=== PATIENT | male | born 1960 | race African-American/Black ===

== ENCOUNTER 2017-04-28 18:56 | Inpatient (IN) | payer OTHER ==
[2017-04-28 19:14] VITALS: BMI 31.0
--- NOTE | 2017-04-28 22:03 | HP ---
COWS - Scale Resting Pulse: 2= [place] 101-120 Sweatin= Chills/Flushing Restless Observation: 1= Difficult to Sit Still Pupil Size: 1= Pupils >than Normal Bone or Joint Aches: 1= Mild Discomfort Runny Nose/ Eye Tearin= Nasal Congestion GI Upset > 30mins: 0= None Tremor Observation: 0= None Yawning Observation: 1= 1-2x During Session Anxiety or Irritability: 1=Feels Anxious/Irritable Goose Flesh Skin: 3=Piloe[place] COWS Score: 12 Admission ROS S - HPI Chief Complaint: withdrawal symptoms Allergies/Adverse Reactions: Allergies Allergy/AdvReac Type Severity Reaction Status Date / Time No Known Allergies Allergy Verified 04/28/17 20:03 History of Present Illness: 57 yo male with hx of heroin, alcohol and nicotine dependence is here seeking detox for the first time. PMHX: asthma. Denies suicidal / homicidal ideation or suicide attempts. Denies any psychiatric admissions or OD. Reports was in an out patient [facility] program reports stop attending about a year ago. Reports longest period of sobriety 7 years. Exam Limitations: No Limitations - Ebola screening Have you traveled outside of the country in the last 21 days: No Have you had contact with anyone from an Ebola affected area: No Have you been sick,other than usual withdrawal symptoms: No Do you have a fever: Yes - Review of Systems Constitutional: Chills, Changes in sleep EENT: reports: No Symptoms Reported Respiratory: reports: SOB with Exertion (asthma, currently uses inhaler QD) Cardiac: reports: No Symptoms Reported GI: reports: Poor Fluid Intake : reports: No Symptoms Reported Musculoskeletal: reports: Back Pain, Joint Pain, Other (muscle cramps) Integumentary: reports: No Symptoms Reported Neuro: reports: No Symptoms reported Endocrine: reports: Intolerance to Cold Hematology: reports: No Symptoms Reported Psychiatric: reports: Orientated x3, Depressed Other Systems: Reviewed and Negative Patient History - Patient Medical History Hx Anemia: No Hx Asthma: Yes Hx Chronic Obstructive Pulmonary Disease (COPD): No Hx Cancer: No Hx Cardiac Disorders: No Hx Congestive Heart Failure: No Hx Hypertension: No Hx Hypercholesterolemia: No Hx Pacemaker: No HX Cerebrovascular Accident: No Hx Seizures: No Hx Dementia: No Hx Diabetes: No Hx Gastrointestinal Disorders: No Hx Liver Disease: No Hx Genitourinary Disorders: No Hx Sexually Transmitted Disorders: No Hx Renal Disease (ESRD): No Hx Thyroid Disease: No Hx Human Immunodeficiency Virus (HIV): No (last tested 6 months ago ) Hx Hepatitis C: No Hx Depression: Yes Hx Suicide Attempt: No Hx Schizophrenia: No - Patient Surgical History Past Surgical History: No Hx Neurologic Surgery: No Hx Cataract Extraction: No Hx Cardiac Surgery: No Hx Lung Surgery: No Hx Breast Surgery: No Hx Breast Biopsy: No Hx Abdominal Surgery: Yes (Hernia repair 1990) Hx Appendectomy: No Hx Cholecystectomy: No Hx Genitourinary Surgery: No Hx Section: No Hx Orthopedic Surgery: No Anesthesia Reaction: No - PPD History Previous Implant?: Yes Documented Results: Negative w/o proof PPD to be Administered?: Yes - Reproductive History Patient is a Female of Child Bearing Age (11 -55 yrs old): No - Smoking Cessation Smoking history: Current every day smoker Have you smoked in the past 12 months: Yes Aproximately how many cigarettes per day: 10 Hx Chewing Tobacco Use: No Initiated information on smoking cessation: Yes 'Breaking Loose' booklet given: 04/28/17 - Substance & Tx. History Hx Alcohol Use: Yes Hx Substance Use: Yes Substance Use Type: Heroin Hx Substance Use Treatment: No - Substances Abused Alcohol Route: Oral Frequency: Daily Amount used: beer- 1 six pack, liquor- 3 glasses Age of first use: 19 Date of Last Use: 04/28/17 Heroin Route: Inhalation Frequency: Daily Amount used: 8 bags Age of first use: 19 Date of Last Use: 04/28/17 Family Disease History - Family Disease History Family Disease History: Diabetes: Father (), CA: Mother (, Cancer ), Other: Father, Mother Admission Physical Exam S - Vital Signs Vital Signs: Vital Signs - 24 hr 04/28/17 19:13 Temperature 98.9 F Pulse Rate 106 H Respiratory 18 Rate Blood Pressure 115/90 - Physical General Appearance: Yes: Nourished, Appropriately Dressed, Obese, Sweating, Anxious, Other (malodorous) HEENTM: Yes: EOMI, Hearing grossly Normal, Normal ENT Inspection, Normocephalic , Normal Voice, JOO, Pharynx Normal, Tm's normal Respiratory: Yes: Chest Non-Tender, No Respiratory Distress, No Accessory Muscle Use, Wheezing (b/l lower lobes) Neck: Yes: No masses,lesions,Nodules, Trachea in good position Breast: Yes: Breast Exam Deferred Cardiology: Yes: Regular Rhythm, Regular Rate, S1, S2 Abdominal: Yes: Normal Bowel Sounds, Non Tender, Soft, Protuberent Genitourinary: Yes: Within Normal Limits Back: Yes: Normal Inspection Musculoskeletal: Yes: full range of Motion, Gait Steady, Joint Stiffness (right knee) Extremities: Yes: Normal Capillary Refill, Normal Inspection, Normal Range of Motion, Non-Tender Neurological: Yes: Within Normal Limits, line clearance foreman II-XII NML intact, Fully Oriented, Alert, Motor Strength 5/5, Depressed Affect Integumentary: Yes: Normal Color, Dry, Warm Lymphatic: Yes: Within Normal Limits - Addiitonal Findings: ELECTROTYPER APPRENTICE Reference #: [id number] - Diagnostic (1) Alcohol dependence with withdrawal Current Visit: Yes Status: Acute Qualifiers: Complication of substance-induced condition: uncomplicated Qualified Code(s ): F10.230 - Alcohol dependence with withdrawal, uncomplicated (2) Obese Current Visit: Yes Status: Chronic Qualifiers: Obesity classification: adult class 1 (BMI 30 - 34.9) Body mass index: BMI 31.0-31.9 (3) Opioid dependence with withdrawal Current Visit: Yes Status: Acute (4) Asthma Current Visit: Yes Status: Chronic Qualifiers: Asthma severity: moderate Asthma persistence: persistent Asthma complication type: unspecified Qualified Code(s): J45.40 - Moderate persistent asthma, uncomplicated (5) Wheezing Current Visit: Yes Status: Acute Cleared for Admission S - Detox or Rehab [facility] Level of Care: Medically Managed Detox Regimen/Protocol: Methadone/Librium S Breath Alcohol Content Breath Alcohol Content: 0 Urine Drug Screen - Results Drug Screen Negative: No Urine Drug Screen Results: KAMILAH-Cocaine, OPI-Opiates, OXY-Oxycodone
[2017-04-28] MEDS ORDERED: MAG HYDROX/AL HYDROX/SIMETH 30 ML UNIT-DOSE CUP PO PRN (22:07)
[2017-04-28] MEDS ORDERED: MENTHOL/PHENOL 1 EACH UD MM PRN (22:07)
[2017-04-28] MEDS ORDERED: chlordiazePOXIDE HCL 25 MG CAPSULE PO PRN (22:07)
[2017-04-28] MEDS ORDERED: ACETAMINOPHEN 325 MG TABLET (FP) PO PRN (22:07)
[2017-04-28] MEDS ORDERED: MAGNESIUM HYDROX 2400MG/30ML ORAL SUSPENSION 30 ML CUP PO PRN (22:07)
[2017-04-28] MEDS ORDERED: MAGNESIUM CITRATE 300 ML BOTTLE PO PRN (22:07)
[2017-04-28] MEDS ORDERED: LOPERAMIDE HCL 2 MG CAPSULE PO PRN (22:07)
[2017-04-28] MEDS ORDERED: chlordiazePOXIDE HCL 25 MG CAPSULE PO ONE (22:07)
[2017-04-28] MEDS ORDERED: guaiFENesin/D-METHORPHAN HB 10 ML UNIT-DOSE CUPS PO PRN (22:07)
[2017-04-28] MEDS ORDERED: METHADONE HCL 10 MG TABLET (FOR DETOX USE ONLY) PO ONE ×2 (22:07→23:00)
[2017-04-28] MEDS ORDERED: hydrOXYzine PAMOATE 50 MG CAPSULE (FP) PO PRN (22:07)
[2017-04-28] MEDS ORDERED: NICOTINE POLACRILEX 2 MG GUM BC PRN (22:07)
[2017-04-28] MEDS ORDERED: P-EPHED 60MG/TRIPROLIDI 2.5MG TABLET PO PRN (22:07)
[2017-04-28] MEDS ORDERED: ALBUTEROL SO4 18 GM HFA INHALER IH PRN (22:09)
[2017-04-28] MEDS ORDERED: ALBUTEROL SO4 2.5/IPRATROPIUM 0.5 INH SOL 3 ML VIAL.NEB. NEB PRN (22:12)
[2017-04-28] MEDS: chlordiazePOXIDE HCL 25 MG CAPSULE PO SCH (22:47)
[2017-04-28 23:53] LABS: URINE APPEARANCE CLEAR; URINE BILIRUBIN NEGATIVE (NEGATIVE); URINE BLOOD NEGATIVE (NEGATIVE); URINE COLOR YELLOW; URINE GLUCOSE (UA) NEGATIVE (NEGATIVE); URINE KETONE TRACE (NEGATIVE); URINE LEUK ESTERASE NEGATIVE (NEGATIVE); URINE NITRITE NEGATIVE (NEGATIVE); URINE PROTEIN NEGATIVE (NEGATIVE); URINE UROBILINOGEN NEGATIVE mg/dL (0.2-1.0)
[2017-04-29] MEDS: chlordiazePOXIDE HCL 25 MG CAPSULE PO SCH ×4 (05:25→22:42)
[2017-04-29] MEDS ORDERED: METHADONE HCL 10 MG TABLET (FOR DETOX USE ONLY) PO SCH (10:00)
[2017-04-29 10:15] LABS: HEMATOCRIT 38.4 % (35.4-49); HEMOGLOBIN 12.9 GM/dL (11.7-16.9); MCH 32.2 pg (25.7-33.7); MCHC 33.6 g/dl (32.0-35.9); MEAN CELL VOLUME 95.7 fl (80-96); MEAN PLT VOLUME 8.2 fl (7.5-11.1); PLATELET COUNT 273 K/MM3 (134-434); RBC 4.01 M/mm3 (4.00-5.60); RDW 14.1 % (11.9-15.9); WHITE BLOOD COUNT 5.7 K/mm3 (4.0-10.0)
[2017-04-29 10:27] LABS: CHLORIDE 105 mmol/L (98-107); POTASSIUM 4.2 mmol/L (3.5-5.1); SODIUM 141 mmol/L (136-145)
[2017-04-29] MEDS: NAPROXEN 500 MG TABLET (FP) PO SCH ×2 (10:41→22:42)
[2017-04-29] MEDS: PRENATAL VITAMINS W/ FOLIC ACID TABLET (FP) PO SCH (10:41)
[2017-04-29] MEDS: NICOTINE 14 MG/24 HOURS TOPICAL PATCH TD SCH (10:42)
[2017-04-29 10:44] LABS: ALBUMIN 3.1 g/dl (3.4-5.0); ALK PHOS 102 U/L (45-117); ANION GAP 6 (8-16); BILIRUBIN,TOTAL 0.4 mg/dL (0.2-1.0); BLOOD UREA NITROGEN 15 mg/dL (7-18); CALCIUM 8.2 mg/dL (8.5-10.1); CO2 30 mmol/L (21-32); GLUCOSE,RANDOM 106 mg/dL (74-106); SGOT/AST 16 U/L (15-37); SGPT/ALT 24 U/L (12-78); TOT PROT 6.3 g/dl (6.4-8.2)
--- NOTE | 2017-04-29 12:01 | EKG ---
Test Reason : Blood Pressure : / mmHG Vent. Rate : 076 BPM Atrial Rate : 076 BPM P-R Int : 182 ms QRS Dur : 090 ms QT Int : 362 ms P-R-T Axes : 079 023 035 degrees QTc Int : 407 ms NORMAL SINUS RHYTHM NORMAL ECG WHEN COMPARED WITH ECG OF 09-OCT-2011 00:11, NO SIGNIFICANT CHANGE WAS FOUND Confirmed by MD Cloud Edward ([id number]) on 04/29/2017 12:00:55 PM Referred By: Confirmed By:Alhaji Cloud MD
--- NOTE | 2017-04-29 13:13 | CONSULT ---
[facility] Psychiatric Consult - Data Date of interview: 04/29/17 Admission source: [facility] Identifying data: First admission to [facility] for this 57 y/o AA male seeking detox treatment on for heroin dependence.Patient is ,a father of five,domiciled,unemployed and supported on [facility] benefits. Substance Abuse History: Confirmed by patient in this interview. Smoking history : Current every day smoker. Have you smoked in the past 12 months: Yes. Aproximately how many cigarettes per day: 10. Hx Chewing Tobacco Use: No. Initiated information on smoking cessation: Yes. 'Breaking Loose' booklet given : 04/28/17. - Substance & Tx. History. Hx Alcohol Use: Yes. Hx Substance Use : Yes. Substance Use Type: Heroin. Hx Substance Use Treatment: No. - Substances Abused. Alcohol. Route: Oral. Frequency: Daily. Amount used: beer- 1 six pack, liquor- 3 glasses. Age of first use: 19. Date of Last Use: 04/28/17. Heroin. Route: Inhalation. Frequency: Daily. Amount used: 8 bags. Age of first use: 19. Date of Last Use: 04/28/17 Medical History: Bronchial asthma,arhritis and a history of herniorraphy. Psychiatric History: Patient denies. Physical/Sexual Abuse/Trauma History: Patient denies. Additional Comment: Urine Drug Screen Results: KAMILAH-Cocaine, OPI-Opiates, OXY- Oxycodone.Noted. Mental Status Exam - Mental Status Exam Alert and Oriented to: Time, Place, Person Cognitive Function: Good Patient Appearance: Well Groomed Mood: Nervous, Withdrawn Affect: Appropriate, Normal Range Patient Behavior: Fatigued, Appropriate, Cooperative Speech Pattern: Clear, Appropriate Voice Loudness: Normal Thought Process: Intact, Goal Oriented Thought Disorder: Not Present Hallucinations: Denies Suicidal Ideation: Denies Homicidal Ideation: Denies Insight/Judgement: Poor Sleep: Poorly, Difficulty falling asleep Appetite: Good Muscle strength/Tone: Normal Gait/Station: Normal Psychiatric Findings - Problem List ([place] 1, 2,3) (1) Alcohol dependence with withdrawal Status: Acute Qualifiers: Complication of substance-induced condition: uncomplicated Qualified Code(s ): F10.230 - Alcohol dependence with withdrawal, uncomplicated (2) Opioid dependence with withdrawal Status: Acute (3) Nicotine dependence Status: Acute (4) Insomnia Status: Acute - Initial Treatment Plan Initial Treatment Plan: Psychoeducation.Sleep hygiene.Detoxification in progress.Ambien 5 mg po hs prn.Ordered with patient's verbal consent.He is made aware of the risk of parasomnias (sleep-walking).Observation.
--- NOTE | 2017-04-29 13:15 | PN ---
[facility] CIWA - CIWA Score Nausea/Vomitin-No Nausea/No Vomiting Muscle Tremors: 4-Moderate,w/Arms Extend Anxiety: 4-Mod. Anxious/Guarded Agitation: 4-Moderately Restless Paroxysmal Sweats: 1-Minimal Palms Moist Orientation: 0-Oriented Tacttile Disturbances: 3-Moderate Itch/Numb/Burn Auditory Disturbances: 0-None Visual Disturbances: 0-None Headache: 0-None Present CIWA-Ar Total Score: 16 S COWS - Scale Resting Pulse: 0= [place] 80 or Below Sweatin= Chills/Flushing Restless Observation: 3= Extraneous Movement Pupil Size: 2= Moderately Dilated Bone or Joint Aches: 2= Severe Diffuse Aches Runny Nose/ Eye Tearin= Nasal Congestion GI Upset > 30mins: 0= None Tremor Observation of Outstretched Hands: 2= Slight Tremor Visible Yawning Observation: 2= >3x During Session Anxiety or Irritability: 2=Irritable/Anxious Goose Flesh Skin: 0=Smooth Skin COWS Score: 15 S Progress Note (SOAP) Subjective: ANXIETY,SWEATS/CHILLS,FATIGUE. Objective: 04/29/17 13:15 Vital Signs Temperature 96.7 F L 04/29/17 13:06 Pulse Rate 71 04/29/17 13:06 Respiratory Rate 18 04/29/17 13:06 Blood Pressure 107/72 04/29/17 13:06 O2 Sat by Pulse Oximetry (%) Laboratory Last Values WBC 5.7 K/mm3 (4.0-10.0) D 04/29/17 07:00 RBC 4.01 M/mm3 (4.00-5.60) 04/29/17 07:00 Hgb 12.9 GM/dL (11.7-16.9) 04/29/17 07:00 Hct 38.4 % (35.4-49) 04/29/17 07:00 MCV 95.7 fl (80-96) 04/29/17 07:00 MCH 32.2 pg (25.7-33.7) 04/29/17 07:00 MCHC 33.6 g/dl (32.0-35.9) 04/29/17 07:00 RDW 14.1 % (11.9-15.9) 04/29/17 07:00 Plt Count 273 K/MM3 (134-434) 04/29/17 07:00 MPV 8.2 fl (7.5-11.1) 04/29/17 07:00 Sodium 141 mmol/L (136-145) 04/29/17 07:00 Potassium 4.2 mmol/L (3.5-5.1) 04/29/17 07:00 Chloride 105 mmol/L (98-107) 04/29/17 07:00 Carbon Dioxide 30 mmol/L (21-32) 04/29/17 07:00 Anion Gap 6 (8-16) L 04/29/17 07:00 BUN 15 mg/dL (7-18) D 04/29/17 07:00 Creatinine 1.0 mg/dL (0.7-1.3) 04/29/17 07:00 Creat Clearance w eGFR > 60 (>60) 04/29/17 07:00 Random Glucose 106 mg/dL (74-106) 04/29/17 07:00 Calcium 8.2 mg/dL (8.5-10.1) L 04/29/17 07:00 Total Bilirubin 0.4 mg/dL (0.2-1.0) D 04/29/17 07:00 AST 16 U/L (15-37) D 04/29/17 07:00 ALT 24 U/L (12-78) D 04/29/17 07:00 Alkaline Phosphatase 102 U/L (45-117) D 04/29/17 07:00 Total Protein 6.3 g/dl (6.4-8.2) L 04/29/17 07:00 Albumin 3.1 g/dl (3.4-5.0) L 04/29/17 07:00 Urine Color Yellow 04/28/17 23:40 Urine Appearance Clear 04/28/17 23:40 Urine pH 6.0 (5.0-8.0) D 04/28/17 23:40 Ur Specific [place] 1.024 (1.001-1.035) 04/28/17 23:40 Urine Protein Negative (NEGATIVE) 04/28/17 23:40 Urine Glucose (UA) Negative (NEGATIVE) 04/28/17 23:40 Urine Ketones Trace (NEGATIVE) H 04/28/17 23:40 Urine Blood Negative (NEGATIVE) 04/28/17 23:40 Urine Nitrite Negative (NEGATIVE) 04/28/17 23:40 Urine Bilirubin Negative (NEGATIVE) 04/28/17 23:40 Urine Urobilinogen Negative mg/dL (0.2-1.0) 04/28/17 23:40 Ur Leukocyte Esterase Negative (NEGATIVE) 04/28/17 23:40 Assessment: 04/29/17 13:15 WITHDRAWAL SX Plan: CONTINUE DETOX
[2017-04-29] MEDS ORDERED: ZOLPIDEM TARTRATE 5 MG TABLET PO PRN (22:00)
[2017-04-29] MEDS: THIAMINE HCL 100 MG TABLET (FP) PO SCH (22:42)
[2017-04-30] MEDS: chlordiazePOXIDE HCL 25 MG CAPSULE PO SCH ×3 (05:51→18:17)
[2017-04-30] MEDS: PRENATAL VITAMINS W/ FOLIC ACID TABLET (FP) PO SCH (10:38)
[2017-04-30] MEDS: METHADONE HCL 5 MG TABLET (FOR DETOX USE ONLY) PO SCH (10:38)
[2017-04-30] MEDS: NAPROXEN 500 MG TABLET (FP) PO SCH ×2 (10:40→22:47)
[2017-04-30] MEDS: NICOTINE 14 MG/24 HOURS TOPICAL PATCH TD SCH (10:40)
--- NOTE | 2017-04-30 13:42 | PN ---
[facility] CIWA - CIWA Score Nausea/Vomitin-No Nausea/No Vomiting Muscle Tremors: 4-Moderate,w/Arms Extend Anxiety: 4-Mod. Anxious/Guarded Agitation: 4-Moderately Restless Paroxysmal Sweats: 1-Minimal Palms Moist Orientation: 0-Oriented Tacttile Disturbances: 3-Moderate Itch/Numb/Burn Auditory Disturbances: 0-None Visual Disturbances: 0-None S COWS - Scale Resting Pulse: 0= [place] 80 or Below Sweatin= Chills/Flushing Restless Observation: 3= Extraneous Movement Pupil Size: 0= Normal to Room Light Bone or Joint Aches: 4=Acute Joint/Muscle Pain Runny Nose/ Eye Tearin= Nasal Congestion GI Upset > 30mins: 0= None Tremor Observation of Outstretched Hands: 1= Tremor [place], Not Seen Yawning Observation: 1= 1-2x During Session Anxiety or Irritability: 2=Irritable/Anxious Goose Flesh Skin: 0=Smooth Skin COWS Score: 13 [facility] Progress Note (SOAP) Subjective: ANXIETY,SWEATS, MUSCLE ACHESINTERMITTENT SLEEP. Objective: 04/30/17 13:42 Vital Signs Temperature 97.3 F L 04/30/17 09:06 Pulse Rate 66 04/30/17 09:06 Respiratory Rate 18 04/30/17 09:06 Blood Pressure 127/80 04/30/17 09:06 O2 Sat by Pulse Oximetry (%) Laboratory Last Values WBC 5.7 K/mm3 (4.0-10.0) D 04/29/17 07:00 RBC 4.01 M/mm3 (4.00-5.60) 04/29/17 07:00 Hgb 12.9 GM/dL (11.7-16.9) 04/29/17 07:00 Hct 38.4 % (35.4-49) 04/29/17 07:00 MCV 95.7 fl (80-96) 04/29/17 07:00 MCH 32.2 pg (25.7-33.7) 04/29/17 07:00 MCHC 33.6 g/dl (32.0-35.9) 04/29/17 07:00 RDW 14.1 % (11.9-15.9) 04/29/17 07:00 Plt Count 273 K/MM3 (134-434) 04/29/17 07:00 MPV 8.2 fl (7.5-11.1) 04/29/17 07:00 Sodium 141 mmol/L (136-145) 04/29/17 07:00 Potassium 4.2 mmol/L (3.5-5.1) 04/29/17 07:00 Chloride 105 mmol/L (98-107) 04/29/17 07:00 Carbon Dioxide 30 mmol/L (21-32) 04/29/17 07:00 Anion Gap 6 (8-16) L 04/29/17 07:00 BUN 15 mg/dL (7-18) D 04/29/17 07:00 Creatinine 1.0 mg/dL (0.7-1.3) 04/29/17 07:00 Creat Clearance w eGFR > 60 (>60) 04/29/17 07:00 Random Glucose 106 mg/dL (74-106) 04/29/17 07:00 Calcium 8.2 mg/dL (8.5-10.1) L 04/29/17 07:00 Total Bilirubin 0.4 mg/dL (0.2-1.0) D 04/29/17 07:00 AST 16 U/L (15-37) D 04/29/17 07:00 ALT 24 U/L (12-78) D 04/29/17 07:00 Alkaline Phosphatase 102 U/L (45-117) D 04/29/17 07:00 Total Protein 6.3 g/dl (6.4-8.2) L 04/29/17 07:00 Albumin 3.1 g/dl (3.4-5.0) L 04/29/17 07:00 Urine Color Yellow 04/28/17 23:40 Urine Appearance Clear 04/28/17 23:40 Urine pH 6.0 (5.0-8.0) D 04/28/17 23:40 Ur Specific [place] 1.024 (1.001-1.035) 04/28/17 23:40 Urine Protein Negative (NEGATIVE) 04/28/17 23:40 Urine Glucose (UA) Negative (NEGATIVE) 04/28/17 23:40 Urine Ketones Trace (NEGATIVE) H 04/28/17 23:40 Urine Blood Negative (NEGATIVE) 04/28/17 23:40 Urine Nitrite Negative (NEGATIVE) 04/28/17 23:40 Urine Bilirubin Negative (NEGATIVE) 04/28/17 23:40 Urine Urobilinogen Negative mg/dL (0.2-1.0) 04/28/17 23:40 Ur Leukocyte Esterase Negative (NEGATIVE) 04/28/17 23:40 RPR Titer Nonreactive (NONREACTIVE) 04/29/17 07:00 Assessment: 04/30/17 13:42 WITHDRAWAL SX Plan: CONTINUE DETOX
[2017-04-30] MEDS: THIAMINE HCL 100 MG TABLET (FP) PO SCH (22:47)
[2017-04-30] MEDS: chlordiazePOXIDE 5 MG CAPSULE PO SCH (22:47)
[2017-05-01] MEDS: chlordiazePOXIDE 5 MG CAPSULE PO SCH ×2 (06:33→10:43)
[2017-05-01 09:21] VITALS: BP 105/63; PULSE 66; TEMP 95.7
[2017-05-01] MEDS: NAPROXEN 500 MG TABLET (FP) PO SCH (10:42)
[2017-05-01] MEDS: METHADONE HCL 5 MG TABLET (FOR DETOX USE ONLY) PO SCH (10:42)
[2017-05-01] MEDS: NICOTINE 14 MG/24 HOURS TOPICAL PATCH TD SCH (10:42)
[2017-05-01] MEDS: PRENATAL VITAMINS W/ FOLIC ACID TABLET (FP) PO SCH (10:42)
--- NOTE | 2017-05-01 13:31 | PN ---
S Progress Note (SOAP) Subjective: PT DECLINED TO CONTINUE WITH DETOX. ALERT O X 3. Objective: 05/01/17 13:31 Vital Signs Temperature 95.7 F L 05/01/17 09:20 Pulse Rate 66 05/01/17 09:20 Respiratory Rate 18 05/01/17 09:20 Blood Pressure 105/63 05/01/17 09:20 O2 Sat by Pulse Oximetry (%) Laboratory Last Values WBC 5.7 K/mm3 (4.0-10.0) D 04/29/17 07:00 RBC 4.01 M/mm3 (4.00-5.60) 04/29/17 07:00 Hgb 12.9 GM/dL (11.7-16.9) 04/29/17 07:00 Hct 38.4 % (35.4-49) 04/29/17 07:00 MCV 95.7 fl (80-96) 04/29/17 07:00 MCH 32.2 pg (25.7-33.7) 04/29/17 07:00 MCHC 33.6 g/dl (32.0-35.9) 04/29/17 07:00 RDW 14.1 % (11.9-15.9) 04/29/17 07:00 Plt Count 273 K/MM3 (134-434) 04/29/17 07:00 MPV 8.2 fl (7.5-11.1) 04/29/17 07:00 Sodium 141 mmol/L (136-145) 04/29/17 07:00 Potassium 4.2 mmol/L (3.5-5.1) 04/29/17 07:00 Chloride 105 mmol/L (98-107) 04/29/17 07:00 Carbon Dioxide 30 mmol/L (21-32) 04/29/17 07:00 Anion Gap 6 (8-16) L 04/29/17 07:00 BUN 15 mg/dL (7-18) D 04/29/17 07:00 Creatinine 1.0 mg/dL (0.7-1.3) 04/29/17 07:00 Creat Clearance w eGFR > 60 (>60) 04/29/17 07:00 Random Glucose 106 mg/dL (74-106) 04/29/17 07:00 Calcium 8.2 mg/dL (8.5-10.1) L 04/29/17 07:00 Total Bilirubin 0.4 mg/dL (0.2-1.0) D 04/29/17 07:00 AST 16 U/L (15-37) D 04/29/17 07:00 ALT 24 U/L (12-78) D 04/29/17 07:00 Alkaline Phosphatase 102 U/L (45-117) D 04/29/17 07:00 Total Protein 6.3 g/dl (6.4-8.2) L 04/29/17 07:00 Albumin 3.1 g/dl (3.4-5.0) L 04/29/17 07:00 Urine Color Yellow 04/28/17 23:40 Urine Appearance Clear 04/28/17 23:40 Urine pH 6.0 (5.0-8.0) D 04/28/17 23:40 Ur Specific [place] 1.024 (1.001-1.035) 04/28/17 23:40 Urine Protein Negative (NEGATIVE) 04/28/17 23:40 Urine Glucose (UA) Negative (NEGATIVE) 04/28/17 23:40 Urine Ketones Trace (NEGATIVE) H 04/28/17 23:40 Urine Blood Negative (NEGATIVE) 04/28/17 23:40 Urine Nitrite Negative (NEGATIVE) 04/28/17 23:40 Urine Bilirubin Negative (NEGATIVE) 04/28/17 23:40 Urine Urobilinogen Negative mg/dL (0.2-1.0) 04/28/17 23:40 Ur Leukocyte Esterase Negative (NEGATIVE) 04/28/17 23:40 RPR Titer Nonreactive (NONREACTIVE) 04/29/17 07:00 Assessment: 05/01/17 13:31 NAD Plan: SIGNED AMA
--- NOTE | 2017-05-01 13:36 | DS ---
[facility] Detox Discharge Summary Admission Date: 04/28/17 Discharge Date: 05/01/17 - History Present History: Alcohol Dependence, Opioid Dependence Additional Comments: PT DECLINED TO COMPLETE DETOX. ALERT O X 3. PT REFUSED TO WAIT TO BE SEEN BY THIS PROVIDER. Pertinent Past History: SEE DX BELOW - Physical Exam Results Vital Signs: Vital Signs Temperature 95.7 F L 05/01/17 09:20 Pulse Rate 66 05/01/17 09:20 Respiratory Rate 18 05/01/17 09:20 Blood Pressure 105/63 05/01/17 09:20 O2 Sat by Pulse Oximetry (%) Pertinent Admission Physical Exam Findings: WITHDRAWAL SX Laboratory Last Values WBC 5.7 K/mm3 (4.0-10.0) D 04/29/17 07:00 RBC 4.01 M/mm3 (4.00-5.60) 04/29/17 07:00 Hgb 12.9 GM/dL (11.7-16.9) 04/29/17 07:00 Hct 38.4 % (35.4-49) 04/29/17 07:00 MCV 95.7 fl (80-96) 04/29/17 07:00 MCH 32.2 pg (25.7-33.7) 04/29/17 07:00 MCHC 33.6 g/dl (32.0-35.9) 04/29/17 07:00 RDW 14.1 % (11.9-15.9) 04/29/17 07:00 Plt Count 273 K/MM3 (134-434) 04/29/17 07:00 MPV 8.2 fl (7.5-11.1) 04/29/17 07:00 Sodium 141 mmol/L (136-145) 04/29/17 07:00 Potassium 4.2 mmol/L (3.5-5.1) 04/29/17 07:00 Chloride 105 mmol/L (98-107) 04/29/17 07:00 Carbon Dioxide 30 mmol/L (21-32) 04/29/17 07:00 Anion Gap 6 (8-16) L 04/29/17 07:00 BUN 15 mg/dL (7-18) D 04/29/17 07:00 Creatinine 1.0 mg/dL (0.7-1.3) 04/29/17 07:00 Creat Clearance w eGFR > 60 (>60) 04/29/17 07:00 Random Glucose 106 mg/dL (74-106) 04/29/17 07:00 Calcium 8.2 mg/dL (8.5-10.1) L 04/29/17 07:00 Total Bilirubin 0.4 mg/dL (0.2-1.0) D 04/29/17 07:00 AST 16 U/L (15-37) D 04/29/17 07:00 ALT 24 U/L (12-78) D 04/29/17 07:00 Alkaline Phosphatase 102 U/L (45-117) D 04/29/17 07:00 Total Protein 6.3 g/dl (6.4-8.2) L 04/29/17 07:00 Albumin 3.1 g/dl (3.4-5.0) L 04/29/17 07:00 Urine Color Yellow 04/28/17 23:40 Urine Appearance Clear 04/28/17 23:40 Urine pH 6.0 (5.0-8.0) D 04/28/17 23:40 Ur Specific [place] 1.024 (1.001-1.035) 04/28/17 23:40 Urine Protein Negative (NEGATIVE) 04/28/17 23:40 Urine Glucose (UA) Negative (NEGATIVE) 04/28/17 23:40 Urine Ketones Trace (NEGATIVE) H 04/28/17 23:40 Urine Blood Negative (NEGATIVE) 04/28/17 23:40 Urine Nitrite Negative (NEGATIVE) 04/28/17 23:40 Urine Bilirubin Negative (NEGATIVE) 04/28/17 23:40 Urine Urobilinogen Negative mg/dL (0.2-1.0) 04/28/17 23:40 Ur Leukocyte Esterase Negative (NEGATIVE) 04/28/17 23:40 RPR Titer Nonreactive (NONREACTIVE) 04/29/17 07:00 - Treatment Hospital Course: Discharged Condition Good - Medication Discharge Medications: Ambulatory Orders Albuterol Sulfate Inhaler - [Ventolin HFA Inhaler -] 2 inh IH Q6H PRN #0 inh 09/02 Naproxen [Naprosyn -] 500 mg PO BID #30 tablet 02/04/16 - Diagnosis (1) Alcohol dependence with withdrawal Status: Acute Qualifiers: Complication of substance-induced condition: uncomplicated Qualified Code(s ): F10.230 - Alcohol dependence with withdrawal, uncomplicated (2) Opioid dependence with withdrawal Status: Acute (3) Asthma Status: Chronic Qualifiers: Asthma severity: mild Asthma persistence: persistent Asthma complication type: uncomplicated Qualified Code(s): J45.30 - Mild persistent asthma, uncomplicated (4) Obese Status: Chronic Qualifiers: Obesity classification: adult class 1 (BMI 30 - 34.9) Body mass index: BMI 31.0-31.9 - AMA Did Patient Leave Against Medical Advice: Yes (AMA)
[2017-05-01] MEDS ORDERED: chlordiazePOXIDE HCL 10 MG CAPSULE PO SCH (23:00)
[2017-05-02] MEDS ORDERED: METHADONE HCL 10 MG TABLET (FOR DETOX USE ONLY) PO SCH (10:00)
--- NOTE | 2017-05-02 15:16 | PN ---
[facility] CIWA - CIWA Score Nausea/Vomitin Muscle Tremors: 6 Anxiety: 3 Agitation: 3 Paroxysmal Sweats: 3 Orientation: 0-Oriented Tacttile Disturbances: 0-None Auditory Disturbances: 0-None Visual Disturbances: 0-None Headache: 0-None Present CIWA-Ar Total Score: 18
--- NOTE | 2017-05-02 15:23 | PN ---
[facility] CIWA - CIWA Score Nausea/Vomitin-Mild Nausea/No Vomiting Muscle Tremors: 2 Anxiety: 3 Agitation: 2 Paroxysmal Sweats: 3 Orientation: 0-Oriented Tacttile Disturbances: 1-Very Mild Itch/Numbness Auditory Disturbances: 0-None Visual Disturbances: 1-Very Mild Sensitivity Headache: 1-Very Mild CIWA-Ar Total Score: 14
[2017-05-03] MEDS ORDERED: METHADONE HCL 5 MG TABLET (FOR DETOX USE ONLY) PO SCH (06:00)
== END 2017-05-01 11:13 | disposition left against medical advice (07) | DRG 770 ==
LOC: YASAS 18:56 → Y3N 20:22
PROVIDERS: ADMIT Internal Medicine; ATTEND Internal Medicine
PROC: HZ2ZZZZ Detoxification Services for Substance Abuse Treatment (ICD-10-PCS; principal; 2017-04-28)
DX: F11.23 Opioid dependence with withdrawal (principal); F10.230 Alcohol dependence with withdrawal, uncomplicated; J45.30 Mild persistent asthma, uncomplicated; G47.00 Insomnia, unspecified; E66.9 Obesity, unspecified; Z68.31 Body mass index [BMI] 31.0-31.9, adult
CPT/HCPCS: 36415; 80053; 81003; 85027; 86593; 93005; 93010

== ENCOUNTER 2018-02-16 09:32 | Emergency (ER) | payer OTHER ==
[2018-02-16 09:37] VITALS: BP 115/72; PULSE 89; TEMP 98; BMI 36.6
[2018-02-16] MEDS ORDERED: ALBUTEROL SO4 2.5/IPRATROPIUM 0.5 INH SOL 3 ML VIAL.NEB. NEB ONE ×2 (09:40→09:57)
[2018-02-16] MEDS ORDERED: predniSONE 20 MG TABLET (UD) PO ONE (09:52)
[2018-02-16] MEDS ORDERED: predniSONE 20 MG TABLET (UD) ONE (09:56)
[2018-02-16] MEDS: ALBUTEROL SO4 2.5/IPRATROPIUM 0.5 INH SOL 3 ML VIAL.NEB. NEB SCH ×4 (10:00→10:30)
--- NOTE | 2018-02-16 10:02 | PDOC ---
History of Present Illness - General Chief Complaint: Asthma Stated Complaint: ASTHMA Time Seen by Provider: 02/16/18 09:45 - History of Present Illness Initial Comments: 02/16/18 09:49 57 M with h/o PSA, asthma, presenting to ED with SOB since last night. Pt states that this feels exactly like his usual asthma flares. States that he started wheezing last night but ran out of his nebulizers. Pt denies any chest pain. Denies orthopnea, denies leg swelling. Denies recent travel/ immobilization. Denies calf pain. Pt states that he has been hospitalized in the past for asthma, but he does not feel that bad today. He states that he would not have come to ED if he did not run out of his nebulizer. Past History - Past Medical History Allergies/Adverse Reactions: Allergies Allergy/AdvReac Type Severity Reaction Status Date / Time No Known Allergies Allergy Verified 04/28/17 20:03 Home Medications: Ambulatory Orders Albuterol Sulfate Inhaler - [Ventolin HFA Inhaler -] 2 inh IH Q6H PRN #0 inh 09/02 Albuterol 0.083% Nebulizer Dona [Ventolin 0.083% Nebulizer Soln -] 1 neb NEB Q4H #30 vial 02/16/18 Prednisone [Prednisone 50 MG TABLETS] 50 mg PO DAILY #4 tablet 02/16/18 Anemia: No Asthma: Yes Cancer: No Cardiac Disorders: No CVA: No COPD: No CHF: No Dementia: No Diabetes: No GI Disorders: No Disorders: No HTN: No Hypercholesterolemia: No Kidney Stones: No Liver Disease: No Seizures: No Thyroid Disease: No - Surgical History Abdominal Surgery: Yes (Hernia repair 1990) Appendectomy: No Cardiac Surgery: No Cholecystectomy: No Lung Surgery: No Neurologic Surgery: No Orthopedic Surgery: No - Reproductive History Testicular Surgery: No - Immunization History Immunization Up to Date: No - Suicide/Smoking/Psychosocial Hx Smoking Status: Yes Smoking History: Current every day smoker Have you smoked in the past 12 months: No Number of Cigarettes Smoked Daily: 10 Information on smoking cessation initiated: No 'Breaking Loose' booklet given: 04/28/17 Hx Alcohol Use: No Drug/Substance Use Hx: No Substance Use Type: Heroin Hx Substance Use Treatment: No Respiratory Specific PMHX - Complaint Specific PMHX TB (Tuberculosis): No Review of Systems - Review of Systems Comments:: 02/16/18 10:02 "GENERAL/CONSTITUTIONAL: No fever or chills. No weakness. HEAD, EYES, EARS, NOSE AND THROAT: No change in vision. No ear pain or discharge. No sore throat. CARDIOVASCULAR: No chest pain, no loss of consciousness RESPIRATORY: + cough, + wheezing, no hemoptysis. GASTROINTESTINAL: No nausea, vomiting, diarrhea or constipation. GENITOURINARY: No dysuria, frequency, or change in urination. MUSCULOSKELETAL: No joint or muscle swelling or pain. No neck or back pain. SKIN: No rash NEUROLOGIC: No vertigo, no change in strength/sensation. ENDOCRINE: No increased thirst. No abnormal weight change. HEMATOLOGIC/LYMPHATIC: No anemia, easy bleeding, or history of blood clots. ALLERGIC/IMMUNOLOGIC: No hives or skin allergy. *Physical Exam - Vital Signs Last Vital Signs Temp Pulse Resp BP Pulse Ox 98.0 F 89 16 115/72 93 L 02/16/18 09:34 02/16/18 09:34 02/16/18 09:34 02/16/18 09:34 02/16/18 09:34 - Physical Exam Comments: 02/16/18 10:03 GENERAL: Awake, alert, and fully oriented, in no acute distress. HEAD: No signs of trauma EYES: PERRLA, EOMI, sclera anicteric, conjunctiva clear ENT: Auricles normal inspection, hearing grossly normal, nares patent, oropharynx clear without exudates. Moist mucosa NECK: Nontender, no stepoffs, Normal ROM, supple, no lymphadenopathy, JVD, or masses LUNGS: Breath sounds equal, mild expiratory wheezing, no rales/rhonchi HEART: Regular rate and rhythm, normal S1 and S2, no murmurs, rubs or gallops ABDOMEN: Soft, nontender, normoactive bowel sounds. No guarding, no rebound. No masses EXTREMITIES: Normal range of motion, no edema. No clubbing or cyanosis. No cords, erythema, or tenderness NEUROLOGICAL: Cranial nerves II through XII intact. 5/5 strength and sensation in all extremities, Normal speech, normal gait, normal cerebellar function SKIN: Warm, Dry, normal turgor, no rashes or lesions noted. Moderate Sedation - Procedure Monitoring Vital Signs: Procedure Monitoring Vital Signs Temperature 98.0 F 02/16/18 09:34 Pulse Rate 89 02/16/18 09:34 Respiratory Rate 16 02/16/18 09:34 Blood Pressure 115/72 02/16/18 09:34 O2 Sat by Pulse Oximetry (%) 93 L 02/16/18 09:34 Medical Decision Making - Medical Decision Making 02/16/18 10:04 57 M with SOB, consistent with typical asthma flares. Pt HD stable, mildly hypoxic. Wheezing on exam. Pt with no chest pain to suggest ACS but will obtain EKG. No fevers to suggest infectious process but will r/o PNA with CXR. - CXR - EKG - Nebs, steroids - Reassess 02/16/18 10:08 Pt refused EKG. Denies any chest pain, low suspicion for ACS. 02/16/18 10:27 CXR clear on my read Pt reassessed - feels completely better, lung exam clear without wheezing Pt ambulatory with O2 sat 100% Pt is well appearing, with normal vitals. Clinically stable for DC at this time. I discussed the physical exam findings, ancillary test results and final diagnoses with the patient. I answered all of the patient's questions. The patient was satisfied with the care received and felt comfortable with the discharge plan and treatment plan. The patient agrees to follow up with the primary care physician within 24-72 hours. 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 Use your nebulizer every 4 hours as needed for coughing and wheezing. Take the prednisone once daily as prescribed for 4 more days. If you experience any worsening shortness of breath, chest pain, fevers, or any other concerning symptoms, return to the ER immediately. - Post Discharge Activity - Attestations Physician Attestion: 02/16/18 10:28 I, Dr. Elieser Baer MD, attest that this document has been prepared under my direction and personally reviewed by me in its entirety. I further attest, that it accurately reflects all work, treatment, procedures and medical decision -making performed by me.
== END 2018-02-16 10:37 | disposition home or self-care (01) ==
LOC: JER 09:32
PROC: 3E0F7GC Introduction of Other Therapeutic Substance into Respiratory Tract, Via Natural or Artificial Opening (ICD-10-PCS; principal; 2018-02-16)
DX: J45.909 Unspecified asthma, uncomplicated (principal); F17.210 Nicotine dependence, cigarettes, uncomplicated
CPT/HCPCS: 71045-TC-FY; 99283-25

== ENCOUNTER 2019-11-05 12:40 | Emergency (ER) | payer OTHER ==
[2019-11-05 13:07] VITALS: BP 126/78; PULSE 78; TEMP 98.6; BMI 42.0
--- NOTE | 2019-11-05 14:04 | PDOC ---
History of Present Illness - General Chief Complaint: Substance Abuse Stated Complaint: SUBSTANCE ABUSE Time Seen by Provider: 11/05/19 13:20 History Source: Patient Exam Limitations: Other (Pt unable or unwilling to fully participate in interview) - History of Present Illness Initial Comments: 59 y/o male BIBEMS after found being found sleeping on a park bench. On arrival, the pt arousable to voice but declined to fully participate in interview. Denied trauma, alcohol, or other street drug usage. Past History - Medical History Allergies/Adverse Reactions: Allergies Allergy/AdvReac Type Severity Reaction Status Date / Time No Known Allergies Allergy Verified 06/15/19 01:47 Home Medications: Ambulatory Orders Albuterol Sulfate Inhaler - [Ventolin HFA Inhaler -] 2 inh IH Q6H PRN #0 inh 10/11/11 Albuterol 0.083% Nebulizer Dona [Ventolin 0.083% Nebulizer Soln -] 1 neb NEB Q4H #30 vial 02/16/18 Prednisone [Prednisone 50 MG TABLETS] 50 mg PO DAILY #4 tablet 02/16/18 Meclizine HCl [Antivert -] 25 mg PO TID PRN #20 tablet 06/15/19 Anemia: No Asthma: Yes Cancer: No Cardiac Disorders: No CVA: No COPD: No CHF: No Dementia: No Diabetes: No GI Disorders: No Disorders: No HTN: No Hypercholesterolemia: No Kidney Stones: No Liver Disease: No Seizures: No Thyroid Disease: No Other medical history: Anisocoria - Surgical History Abdominal Surgery: Yes (Hernia repair 1990) Appendectomy: No Cardiac Surgery: No Cholecystectomy: No Lung Surgery: No Neurologic Surgery: No Orthopedic Surgery: No - Reproductive History Testicular Surgery: No - Immunization History Immunization Up to Date: No - Psycho-Social/Smoking History Smoking Status: Yes Smoking History: Current every day smoker Have you smoked in the past 12 months: Yes Number of Cigarettes Smoked Daily: 20 Information on smoking cessation initiated: No 'Breaking Loose' booklet given: 04/28/17 - Substance Abuse Hx (Audit-C & DAST Scrn) How often the patient has a drink containing alcohol: 2-3 times / week Number of drinks the patient has on a typical day: 5 or 6 How often the patient has six or more drinks on one occasion: Daily or almost daily Score: In Men: 4 or > Positive; In Women: 3 or > Positive: 9 Screen Result (Pos requires Nsg. Audit-10AR): Positive In the last yr the pt used illegal drug/Rx for NonMed reason: Yes Score: Yes response is considered Positive: 1 Screen Result (Positive result requires Nsg. DAST-10): Positive Review of Systems - Review of Systems Able to Perform ROS?: No Comments:: Pt unable or unwilling to participate in ROS. *Physical Exam - Vital Signs Last Vital Signs Temp Pulse Resp BP Pulse Ox 98.6 F 78 15 126/78 93 L 11/05/19 12:57 11/05/19 12:57 11/05/19 12:57 11/05/19 12:57 11/05/19 12:57 - Physical Exam Vital signs and nursing notes reviewed. Constitutional- Obese adult male in no acute distress or obvious discomfort. Found semi-fowlers on hospital bed. Head- Normocephalic. No obvious external signs of trauma. Eyes- L pupil 4mm and R pupil 3mm; both RRL. EOMI. No vertical, horizontal, or rotary nystagmus. Sclerae white. Ears- Hearing grossly intact. Nose- No nasal discharge. Throat- Oral cavity and pharynx normal. No inflammation, swelling, exudate, or lesions. Tongue midline. Neck- Supple, trachea is midline. Cardiovascular / Chest- Regular rate and regular rhythm. No murmur, rubs, clicks, or gallops. Peripheral pulses- radial pulses full. Trace pretibial edema. Respiratory- Breathing unlabored. Speaking in multi-word responses without pausing. Equal chest rise and fall. Clear to auscultation bilaterally. No stridor, no wheezing, no rhonchi. Gastrointestinal- abdomen is soft, non-tender, non-distended. No pulsatile masses. No overlying skin lesions or obvious signs of trauma. Old appearing midline linear surgical scar. Neuro- Somnolent but somewhat arousable to verbal stimuli; able to provide name but unable/unwilling to contribute to further interview questions. Moving all four extremities spontaneously. No facial asymmetry. No mildly slurred speech. No upper or lower extremity drift. Cranial nerves intact. No nuchal rigidity. Skin- Warm and dry. Excoriation lesions to arms and legs. Psych- Affect- appropriate. Mood- normal. Speech was non-labored, non- pressured. ED Treatment Course - ADDITIONAL ORDERS Additional order review: Laboratory Results 11/05/19 13:35 POC Glucometer 96 11/05/19 13:35 POC Glucometer 96 Medical Decision Making - Medical Decision Making 59 y/o male presenting after found sleeping. Denies alcohol or street drug usage but he is known to this department for polysubstance abuse. No obvious signs of trauma. Pt denies pain and is arousable. Anisocoria is a documented historical finding. Vitals unremarkable for hypotension or tachycardia. Afebrile. POC Glucose WNL. Shortly after initial assessment, the pt was observed ambulating unassisted through the department to the bathroom. Unable to locate the pt for repeat evaluation after search by both myself and ED RN Vinayak. Pt suspected to have eloped. Case discussed with ED Attending. Dr. Beltran. Luis Armando Kwok M.D., PGY3 Emergency Medicine Discharge - Discharge Information Problems reviewed: Yes Clinical Impression/Diagnosis: Substance abuse Disposition: ELOPED - Follow up/Referral Referrals: Alexx Fernandez MD [Staff Physician] - - Patient Discharge Instructions - Post Discharge Activity
--- NOTE | 2019-11-08 13:33 | PDOC ---
Documentation entered by Aubrie Sparks SCRIBE, acting as scribe for Azar Beltran MD. Azar Beltran MD: This documentation has been prepared by the jodieibeBridger Lincy, SCRIBE, under my direction and personally reviewed by me in its entirety. I confirm that the documentation accurately reflects all work, treatment, procedures, and medical decision making performed by me. Attending Attestation - Resident Resident Name: Luis Armando Kwok - ED Attending Attestation I have performed the following: I have examined & evaluated the patient, The case was reviewed & discussed with the resident, I agree w/resident's findings & plan, Exceptions are as noted - HPI HPI: pt eloped prior to my evalution - Physicial Exam PE: 11/09/19 10:56 j luis kan - Medical Decision Making 11/09/19 10:56 see above Discharge - Discharge Information Problems reviewed: Yes Clinical Impression/Diagnosis: Substance abuse Disposition: ELOPED - Follow up/Referral Referrals: Alexx Fernandez MD [Staff Physician] - - Patient Discharge Instructions - Post Discharge Activity
== END 2019-11-05 15:20 | disposition left against medical advice (07) ==
LOC: JER 12:40
DX: F19.10 Other psychoactive substance abuse, uncomplicated (principal)
CPT/HCPCS: 82962; 99283-25

== ENCOUNTER 2023-04-14 14:39 | Inpatient (IN) | payer OTHER ==
[2023-04-14] MEDS: ACETAMINOPHEN 1000 MG/100 ML BAG IVPB ONE (16:44)
[2023-04-14] MEDS ORDERED: ACETAMINOPHEN INJECTION 100 ML IVPB ONE (16:49)
[2023-04-14 16:51] LABS: BASO % 0.6 % (0-2.0); EOS % 3.4 % (0-4.5); HEMATOCRIT 26.9 % (35.4-49); HEMOGLOBIN 8.9 GM/dL (11.7-16.9); LYMPH % 13.3 % (8-40); MCH 29.4 pg (25.7-33.7); MEAN CELL VOLUME 89.1 fl (80-96); MEAN PLT VOLUME 6.8 fl (7.5-11.1); MONO % 6.1 % (3.8-10.2); NEUT % 76.6 % (42.8-82.8); PLATELET COUNT 544 10^3/uL (134-434); RBC 3.02 M/mm3 (4.00-5.60); RDW 16.2 % (11.9-15.9); WHITE BLOOD COUNT 9.4 K/mm3 (4.0-10.0)
[2023-04-14 17:11] LABS: CALCIUM 8.7 mg/dL (8.5-10.1)
[2023-04-14 17:12] LABS: ALBUMIN 2.2 g/dl (3.4-5.0); BLOOD UREA NITROGEN 14.1 mg/dL (7-18)
[2023-04-14] MEDS ORDERED: VANCOMYCIN 1 GRAM (PRE-DOCKED) 1,000 MG/250 ML BAG IVPB ONE (17:12)
[2023-04-14] MEDS ORDERED: PIPERACILLIN/TAZOB 4.5 GM 4.5 GM/100 ML BAG IVPB ONE (17:12)
[2023-04-14 17:15] LABS: CREATININE 0.9 mg/dL (0.55-1.3)
[2023-04-14 17:16] LABS: TOT PROT 7.8 g/dl (6.4-8.2)
[2023-04-14 17:17] LABS: BILIRUBIN,TOTAL 0.3 mg/dL (0.2-1)
[2023-04-14] MEDS: PIPERACILLIN/TAZOB 4.5 GM 4.5 GM in DEXTROSE 5%-WATER 100 ML IVPB ONE (17:18)
[2023-04-14] MEDS: VANCOMYCIN 1,000 MG in DEXTROSE 5%-WATER - 250 ML IVPB ONE (17:18)
[2023-04-14 17:20] LABS: N-TERMINAL BNP 173.4 pg/ml (5-125); POTASSIUM 4.2 mmol/L (3.5-5.1)
[2023-04-14] MEDS ORDERED: DOCUSATE SODIUM 100 MG CAPSULE (FP) PO PRN (21:46)
[2023-04-14] MEDS ORDERED: PIPERACILLIN/TAZOB 3.375 GM 3.375 GM/50 ML BAG IVPB ONE (22:28)
[2023-04-14] MEDS: PIPERACILLIN/TAZOB 3.375 GM 3.375 GM in DEXTROSE 5%-WATER - 50 ML IVPB SCH (22:32)
[2023-04-15] MEDS: VANCOMYCIN/WATER 1250 MG 1,250 MG/250 ML BAG IVPB ONE (05:14)
[2023-04-15 09:23] LABS: INR 1.28 (0.83-1.09); PROTHROMBIN TIME (PATIENT) 14.8 SEC (9.7-13.0)
[2023-04-15 09:26] LABS: ACTIVATED PTT 29.2 SECONDS (25.2-36.5)
[2023-04-15] MEDS ORDERED: ALBUTEROL SO4 HFA INHALER IH PRN (09:28)
[2023-04-15 09:29] LABS: BASO % 0.6 % (0-2.0); EOS % 6.4 % (0-4.5); HEMATOCRIT 27.1 % (35.4-49); HEMOGLOBIN 9.2 GM/dL (11.7-16.9); LYMPH % 16.7 % (8-40); MCH 30.3 pg (25.7-33.7); MCHC 33.9 g/dl (32.0-35.9); MEAN CELL VOLUME 89.2 fl (80-96); MEAN PLT VOLUME 6.6 fl (7.5-11.1); MONO % 5.4 % (3.8-10.2); NEUT % 70.9 % (42.8-82.8); PLATELET COUNT 555 10^3/uL (134-434); RBC 3.03 M/mm3 (4.00-5.60); WHITE BLOOD COUNT 7.4 K/mm3 (4.0-10.0)
[2023-04-15 09:49] LABS: BLOOD UREA NITROGEN 13.4 mg/dL (7-18); CALCIUM 8.3 mg/dL (8.5-10.1)
[2023-04-15 09:52] LABS: PHOSPHOROUS 3.7 mg/dL (2.5-4.9)
[2023-04-15] MEDS: ACETAMINOPHEN 1000 MG/100 ML BAG IVPB PRN (15:02)
[2023-04-15] MEDS: PIPERACILLIN/TAZOB 3.375 GM 3.375 GM in DEXTROSE 5%-WATER - 50 ML IVPB SCH ×3 (16:26→22:07)
[2023-04-15] MEDS: VANCOMYCIN/WATER 1250 MG 1,250 MG/250 ML BAG IVPB SCH ×2 (17:24→23:22)
[2023-04-15] MEDS: ACETAMINOPHEN 325 MG TABLET (FP) PO PRN (22:21)
[2023-04-16] MEDS: TAMSULOSIN HCL 0.4 MG CAP PO SCH (10:42)
[2023-04-16] MEDS: methaDONE HCL 40 MG DISPERSABLE TABLET PO ONE (17:51)
[2023-04-16] MEDS: cloNIDine-TTS 0.2 MG/24 HOURS PATCH.TDWK TD ONE (18:18)
[2023-04-17 12:47] LABS: METHADONE, UR NEGATIVE (NEGATIVE); PHENCYCLIDINE,URINE NEGATIVE (NEGATIVE); URINE BENZODIAZEPINES NEGATIVE (NEGATIVE)
[2023-04-17 12:48] LABS: URINE AMPHETAMINES NEGATIVE (NEGATIVE)
[2023-04-17 13:00] LABS: COCAINE, UR POSITIVE (NEGATIVE); OPIATES, URI POSITIVE (NEGATIVE); URINE BARBITURATES NEGATIVE (NEGATIVE)
[2023-04-17 20:49] VITALS: RESP 18
[2023-04-18 09:59] LABS: EOS % 4.5 % (0-4.5); LYMPH % 29.1 % (8-40); MCH 30.1 pg (25.7-33.7); MCHC 33.4 g/dl (32.0-35.9); MEAN CELL VOLUME 90.2 fl (80-96); MEAN PLT VOLUME 6.6 fl (7.5-11.1); MONO % 8.4 % (3.8-10.2); PLATELET COUNT 570 10^3/uL (134-434); RBC 2.99 M/mm3 (4.00-5.60); RDW 16.3 % (11.9-15.9); WHITE BLOOD COUNT 4.8 K/mm3 (4.0-10.0)
[2023-04-18 10:19] LABS: POTASSIUM 3.9 mmol/L (3.5-5.1)
[2023-04-18 10:30] LABS: ALBUMIN 2.1 g/dl (3.4-5.0); CALCIUM 8.5 mg/dL (8.5-10.1)
[2023-04-18 10:32] LABS: BLOOD UREA NITROGEN 6.8 mg/dL (7-18); CREATININE 0.9 mg/dL (0.55-1.3)
[2023-04-18 10:33] LABS: TOT PROT 7.5 g/dl (6.4-8.2)
[2023-04-18 10:34] LABS: BILIRUBIN,TOTAL 0.3 mg/dL (0.2-1)
[2023-04-18 15:17] VITALS: BMI 25.9
[2023-04-18] MEDS: COLLAGENASE CLOSTRIDIUM HIST. 30 GRAMS TUBE TP SCH ×2 (16:11→19:26)
[2023-04-18] MEDS: ASCORBIC ACID 500 MG TABLET (FP) PO SCH (21:49)
[2023-04-19] MEDS: MULTIVITAMINS (DAILY MVI) TABLET (FP) PO SCH (09:30)
[2023-04-22] MEDS ORDERED: AMMONIUM LACTATE 12% LOTION 225 GM BOTTLE TP PRN (11:20)
[2023-04-23 17:01] VITALS: BP 127/52; PULSE 68; TEMP 98.1
[2023-04-23] MEDS ORDERED: cloNIDine-TTS 0.2 MG/24 HOURS PATCH.TDWK TD ONE (18:03)
== END 2023-04-23 17:24 | disposition left against medical advice (07) | DRG 383 ==
LOC: JER 14:39 → JERBED 21:51 → J5S 04-15 02:57 → OBSVTOIN 04-18 10:12
PROVIDERS: ADMIT Internal Medicine; ATTEND Internal Medicine
DX: L03.115 Cellulitis of right lower limb (principal); L89.212 Pressure ulcer of right hip, stage 2; N40.0 Benign prostatic hyperplasia without lower urinary tract symptoms; F32.A Depression, unspecified; J45.909 Unspecified asthma, uncomplicated; R26.2 Difficulty in walking, not elsewhere classified; M17.11 Unilateral primary osteoarthritis, right knee; L03.116 Cellulitis of left lower limb; F11.23 Opioid dependence with withdrawal; F10.230 Alcohol dependence with withdrawal, uncomplicated; K29.70 Gastritis, unspecified, without bleeding; D69.6 Thrombocytopenia, unspecified; D64.9 Anemia, unspecified; F17.200 Nicotine dependence, unspecified, uncomplicated; L85.3 Xerosis cutis
CPT/HCPCS: 36415; 71045-TC-FY; 73502-TC-RT-FY; 73552-TC-RT-FY; 73562-TC-LT-FY; 73562-TC-RT-FY; 73590-TC-RT-FY; 80048; 80053; 80307; 82550; 82553; 83735; 83880; 84100; 84484; 85025; 85610; 85730; 87040; 93005; 93010; 93970-TC; 97116-GP; 97162-GP; 99285-25; E0372; G0378; J0131

== ENCOUNTER 2023-05-26 22:36 | Inpatient (IN) | payer OTHER ==
[2023-05-26 22:45] VITALS: BMI 34.1
[2023-05-27 01:24] LABS: BASO % 0.5 % (0-2.0); EOS % 2.3 % (0-4.5); HEMATOCRIT 30.2 % (35.4-49); HEMOGLOBIN 10.1 GM/dL (11.7-16.9); LYMPH % 9.7 % (8-40); MCH 30.8 pg (25.7-33.7); MCHC 33.4 g/dl (32.0-35.9); MEAN CELL VOLUME 92.2 fl (80-96); MEAN PLT VOLUME 8.4 fl (7.5-11.1); MONO % 8.8 % (3.8-10.2); NEUT % 78.7 % (42.8-82.8); PLATELET COUNT 351 10^3/uL (134-434); RBC 3.27 M/mm3 (4.00-5.60); WHITE BLOOD COUNT 9.1 K/mm3 (4.0-10.0)
[2023-05-27 01:44] LABS: POTASSIUM 5.4 mmol/L (3.5-5.1)
[2023-05-27 01:46] LABS: ALBUMIN 2.7 g/dl (3.4-5.0); BLOOD UREA NITROGEN 13.9 mg/dL (7-18); CALCIUM 8.8 mg/dL (8.5-10.1)
[2023-05-27 01:49] LABS: CREATININE 0.9 mg/dL (0.55-1.3)
[2023-05-27 01:52] LABS: BILIRUBIN,TOTAL 0.4 mg/dL (0.2-1); TOT PROT 7.7 g/dl (6.4-8.2)
[2023-05-27 02:22] LABS: ERYTHROCYTE SEDIMENTATION RATE 95 mm/hr (0-20)
[2023-05-27] MEDS ORDERED: TAMSULOSIN HCL 0.4 MG CAP ONE (02:55)
[2023-05-27] MEDS: TAMSULOSIN HCL 0.4 MG CAP PO ONE (03:07)
[2023-05-27] MEDS ORDERED: ACETAMINOPHEN 1000 MG/100 ML BAG IVPB PRN (03:48)
[2023-05-27] MEDS ORDERED: PIPERACILLIN/TAZOB 4.5 GM 4.5 GM/100 ML BAG IVPB ONE (04:29)
[2023-05-27] MEDS ORDERED: VANCOMYCIN 1 GRAM (PRE-DOCKED) 1,000 MG/250 ML BAG IVPB ONE (04:29)
[2023-05-27] MEDS: PIPERACILLIN/TAZOB 4.5 GM 4.5 GM in DEXTROSE 5%-WATER 100 ML IVPB ONE (04:47)
[2023-05-27] MEDS ORDERED: diphenhydrAMINE HCL 25 MG CAPSULE (FP) PO ONE (04:56)
[2023-05-27] MEDS: diphenhydrAMINE HCL 25 MG CAPSULE (FP) PO ONE (05:15)
[2023-05-27] MEDS: VANCOMYCIN 1,000 MG in DEXTROSE 5%-WATER - 250 ML IVPB ONE (05:15)
[2023-05-27] MEDS ORDERED: PIPERACILLIN/TAZOB 3.375 GM 3.375 GM/50 ML BAG IVPB ONE ×2 (08:42→18:06)
[2023-05-27] MEDS: PIPERACILLIN/TAZOB 3.375 GM 3.375 GM in DEXTROSE 5%-WATER - 50 ML IVPB SCH (09:03)
[2023-05-27] MEDS: FOLIC ACID INJECTION - 1 MG, THIAMINE HCL 100 MG, MULTIVIT INJECTION ADULT 10 ML in SOD... IVPB ONE (09:35)
[2023-05-27] MEDS ORDERED: KETOROLAC TROMETHAMINE 15 MG/ML VIAL ONE (11:53)
[2023-05-27] MEDS: KETOROLAC TROMETHAMINE 15 MG/ML VIAL IVPUSH PRN (12:02)
[2023-05-27] MEDS ORDERED: HEPARIN NA (PORCINE) 5,000 UNITS/ML 1ML VIAL ONE (14:00)
[2023-05-27] MEDS ORDERED: hydrOXYzine PAMOATE 25 MG CAPSULE (FP) PO ONE (14:00)
[2023-05-27] MEDS: HEPARIN NA (PORCINE) 5,000 UNITS/ML 1ML VIAL SQ SCH (14:13)
[2023-05-27] MEDS: hydrOXYzine PAMOATE 25 MG CAPSULE (FP) PO PRN (14:14)
[2023-05-27] MEDS ORDERED: ALPRAZolam 0.25 MG TABLET ONE (16:07)
[2023-05-27] MEDS: ALPRAZolam 0.25 MG TABLET PO ONE (16:19)
[2023-05-27] MEDS ORDERED: ALBUTEROL SO4 2.5/IPRATROPIUM 0.5 INH SOL 3 ML VIAL.NEB. NEB PRN (17:40)
[2023-05-27] MEDS: VANCOMYCIN PREMIX 1.5 GM 1,500 MG/300 ML BAG IVPB SCH (18:35)
[2023-05-28 11:51] LABS: BASO % 0.7 % (0-2.0); EOS % 8.7 % (0-4.5); HEMATOCRIT 27.3 % (35.4-49); LYMPH % 18.2 % (8-40); MCH 30.8 pg (25.7-33.7); MCHC 33.1 g/dl (32.0-35.9); MEAN CELL VOLUME 92.9 fl (80-96); MONO % 8.5 % (3.8-10.2); NEUT % 63.9 % (42.8-82.8); PLATELET COUNT 320 10^3/uL (134-434); RBC 2.94 M/mm3 (4.00-5.60); RDW 17.4 % (11.9-15.9); WHITE BLOOD COUNT 5.8 K/mm3 (4.0-10.0)
[2023-05-28 12:02] LABS: INR 1.24 (0.83-1.09); PROTHROMBIN TIME (PATIENT) 14.3 SEC (9.7-13.0)
[2023-05-28 12:05] LABS: ACTIVATED PTT 28.3 SECONDS (25.2-36.5)
[2023-05-28 12:14] LABS: POTASSIUM 3.5 mmol/L (3.5-5.1)
[2023-05-28 12:16] LABS: BLOOD UREA NITROGEN 12.5 mg/dL (7-18); CALCIUM 8.3 mg/dL (8.5-10.1); MAGNESIUM 1.7 mg/dL (1.8-2.4)
[2023-05-28 12:20] LABS: CREATININE 0.9 mg/dL (0.55-1.3); PHOSPHOROUS 3.1 mg/dL (2.5-4.9)
[2023-05-28 12:22] LABS: BILIRUBIN,TOTAL 0.4 mg/dL (0.2-1); TOT PROT 6.3 g/dl (6.4-8.2)
[2023-05-28 12:28] LABS: ALBUMIN 2.1 g/dl (3.4-5.0)
[2023-05-28] MEDS: PIPERACILLIN/TAZOB 3.375 GM 3.375 GM in DEXTROSE 5%-WATER - 50 ML IVPB SCH ×2 (14:56→16:07)
[2023-05-28] MEDS: VANCOMYCIN HCL 1,500 MG in DEXTROSE 5%-WATER - 250 ML IVPB SCH (15:00)
[2023-05-28] MEDS: AMINO ACIDS/PROTEIN HYDROLYS 30 ML LIQUID.PKT PO SCH (17:48)
[2023-05-29] MEDS: TAMSULOSIN HCL 0.4 MG CAP PO SCH (09:04)
[2023-05-30] MEDS: ACETAMINOPHEN 1000 MG/100 ML BAG IVPB ONE (02:56)
[2023-05-30] MEDS: LORazepam 2 MG/ML SDV VIAL IVPUSH ONE (02:56)
[2023-05-30] MEDS: LOPERAMIDE HCL 2 MG CAPSULE PO PRN (14:52)
[2023-05-30 16:14] LABS: METHADONE, UR NEGATIVE (NEGATIVE); PHENCYCLIDINE,URINE NEGATIVE (NEGATIVE); URINE BARBITURATES NEGATIVE (NEGATIVE); URINE BENZODIAZEPINES NEGATIVE (NEGATIVE)
[2023-05-30 16:16] LABS: COCAINE, UR POSITIVE (NEGATIVE); OPIATES, URI POSITIVE (NEGATIVE); URINE AMPHETAMINES NEGATIVE (NEGATIVE)
[2023-06-01 17:56] VITALS: RESP 18
[2023-06-01] MEDS: KETOROLAC TROMETHAMINE 30 MG/1 ML VIAL IVPUSH SCH (17:57)
[2023-06-01] MEDS: ASCORBIC ACID 500 MG TABLET (FP) PO SCH (17:57)
[2023-06-02 08:25] LABS: EOS % 7.8 % (0-4.5); HEMATOCRIT 31.4 % (35.4-49); HEMOGLOBIN 10.2 GM/dL (11.7-16.9); LYMPH % 23.2 % (8-40); MCH 30.1 pg (25.7-33.7); MCHC 32.4 g/dl (32.0-35.9); MEAN CELL VOLUME 92.9 fl (80-96); MEAN PLT VOLUME 7.6 fl (7.5-11.1); MONO % 7.6 % (3.8-10.2); NEUT % 60.4 % (42.8-82.8); PLATELET COUNT 382 10^3/uL (134-434); RBC 3.38 M/mm3 (4.00-5.60); RDW 16.2 % (11.9-15.9)
[2023-06-02 08:31] LABS: POTASSIUM 4.5 mmol/L (3.5-5.1)
[2023-06-02 08:41] LABS: CALCIUM 8.6 mg/dL (8.5-10.1)
[2023-06-02 08:42] LABS: BLOOD UREA NITROGEN 21.2 mg/dL (7-18)
[2023-06-02] MEDS: AMINO ACIDS/PROTEIN HYDROLYS 30 ML LIQUID.PKT PO SCH (08:42)
[2023-06-02 08:45] LABS: CREATININE 1.2 mg/dL (0.55-1.3)
[2023-06-02 08:46] LABS: BILIRUBIN,TOTAL 0.3 mg/dL (0.2-1)
[2023-06-02 08:48] LABS: TOT PROT 7.2 g/dl (6.4-8.2)
[2023-06-02 09:16] LABS: ALBUMIN 2.6 g/dl (3.4-5.0)
[2023-06-02] MEDS: MULTIVITAMINS THER W-MINERALS COMBO TABLET (FP) PO SCH (17:25)
[2023-06-03] MEDS: AMOX TR/POT CLAV 500MG/125MG TABLETS (FP) PO SCH (10:14)
[2023-06-03 22:55] VITALS: BP 116/55; PULSE 67; TEMP 98.6
== END 2023-06-04 13:00 | disposition home or self-care (01) | DRG 380 ==
LOC: JER 22:36 → JERBED 05-27 03:36 → J7W 05-27 21:08
PROVIDERS: ADMIT Internal Medicine; ATTEND Internal Medicine
DX: L89.623 Pressure ulcer of left heel, stage 3 (principal); L89.212 Pressure ulcer of right hip, stage 2; F11.20 Opioid dependence, uncomplicated; I83.009 Varicose veins of unspecified lower extremity with ulcer of unspecified site; N40.0 Benign prostatic hyperplasia without lower urinary tract symptoms; F10.20 Alcohol dependence, uncomplicated; J45.909 Unspecified asthma, uncomplicated; F32.A Depression, unspecified; F19.10 Other psychoactive substance abuse, uncomplicated; F17.210 Nicotine dependence, cigarettes, uncomplicated; D64.9 Anemia, unspecified
CPT/HCPCS: 36415; 73630-TC-LT; 80048; 80053; 80307; 83735; 84100; 85025; 85610; 85651; 85730; 86140; 87040; 97116-GP; 97162-GP; 99285-25; E0186; J0131; J1644

== ENCOUNTER 2023-08-07 02:05 | Inpatient (IN) | payer OTHER ==
[2023-08-07 02:36] VITALS: BMI 29.5
[2023-08-07] MEDS ORDERED: ACETAMINOPHEN 325 MG TABLET (FP) ONE (03:15)
[2023-08-07] MEDS: ACETAMINOPHEN 325 MG TABLET (FP) PO ONE (03:17)
[2023-08-07 04:40] LABS: BASO % 0.7 % (0-2.0); EOS % 2.6 % (0-4.5); HEMATOCRIT 27.4 % (35.4-49); HEMOGLOBIN 9.3 GM/dL (11.7-16.9); LYMPH % 15.3 % (8-40); MCH 31.3 pg (25.7-33.7); MCHC 33.9 g/dl (32.0-35.9); MEAN CELL VOLUME 92.4 fl (80-96); MEAN PLT VOLUME 6.9 fl (7.5-11.1); MONO % 7.7 % (3.8-10.2); NEUT % 73.7 % (42.8-82.8); PLATELET COUNT 414 10^3/uL (134-434); RBC 2.97 M/mm3 (4.00-5.60); RDW 16.4 % (11.9-15.9); WHITE BLOOD COUNT 10.1 K/mm3 (4.0-10.0)
[2023-08-07 04:52] LABS: POTASSIUM 4.3 mmol/L (3.5-5.1)
[2023-08-07 04:54] LABS: ALBUMIN 2.8 g/dl (3.4-5.0); CALCIUM 8.4 mg/dL (8.5-10.1)
[2023-08-07 04:55] LABS: BLOOD UREA NITROGEN 28.1 mg/dL (7-18)
[2023-08-07 04:58] LABS: CREATININE 1.7 mg/dL (0.55-1.3)
[2023-08-07 04:59] LABS: BILIRUBIN,TOTAL 0.3 mg/dL (0.2-1); TOT PROT 7.1 g/dl (6.4-8.2)
[2023-08-07] MEDS ORDERED: CEFTRIAXONE 1 GM/50 ML BAG ONE (14:20)
[2023-08-07] MEDS: CEFTRIAXONE 1 GM in DEXTROSE 5%-WATER - 50 ML IVPB SCH (14:22)
[2023-08-07] MEDS: ACETAMINOPHEN 325 MG TABLET (FP) PO PRN (20:42)
[2023-08-08 09:16] LABS: BASO % 0.9 % (0-2.0); EOS % 4.4 % (0-4.5); HEMATOCRIT 24.7 % (35.4-49); HEMOGLOBIN 8.4 GM/dL (11.7-16.9); LYMPH % 28.1 % (8-40); MCH 31.7 pg (25.7-33.7); MCHC 33.9 g/dl (32.0-35.9); MEAN CELL VOLUME 93.5 fl (80-96); MEAN PLT VOLUME 7.5 fl (7.5-11.1); NEUT % 57.6 % (42.8-82.8); PLATELET COUNT 402 10^3/uL (134-434); RBC 2.65 M/mm3 (4.00-5.60); RDW 16.8 % (11.9-15.9); WHITE BLOOD COUNT 6.5 K/mm3 (4.0-10.0)
[2023-08-08] MEDS: ENOXAPARIN NA (PORCINE) 40 MG/0.4 ML DISP.SYRIN SQ SCH (09:22)
[2023-08-08] MEDS: TAMSULOSIN HCL 0.4 MG CAP PO SCH (09:22)
[2023-08-08 09:28] LABS: POTASSIUM 4.7 mmol/L (3.5-5.1)
[2023-08-08 09:32] LABS: CALCIUM 8.4 mg/dL (8.5-10.1)
[2023-08-08 09:33] LABS: ALBUMIN 2.4 g/dl (3.4-5.0); BLOOD UREA NITROGEN 17.7 mg/dL (7-18)
[2023-08-08 09:37] LABS: BILIRUBIN,TOTAL 0.3 mg/dL (0.2-1)
[2023-08-08] MEDS: MINERAL OIL/PET HY-PHL TOPICAL OINTMENT 454 GM JAR TP SCH (13:02)
[2023-08-08 14:04] LABS: PHENCYCLIDINE,URINE NEGATIVE (NEGATIVE); URINE BARBITURATES NEGATIVE (NEGATIVE); URINE BENZODIAZEPINES NEGATIVE (NEGATIVE)
[2023-08-08 14:05] LABS: METHADONE, UR NEGATIVE (NEGATIVE); URINE AMPHETAMINES NEGATIVE (NEGATIVE)
[2023-08-08 14:06] LABS: COCAINE, UR POSITIVE (NEGATIVE); OPIATES, URI POSITIVE (NEGATIVE)
[2023-08-08] MEDS: AMINO ACIDS/PROTEIN HYDROLYS 30 ML LIQUID.PKT PO SCH (17:49)
[2023-08-08] MEDS: BUPRENORPHINE/NALOXONE 2 MG/0.5 MG FILM PACKET SL SCH (21:32)
[2023-08-09 09:23] LABS: BASO % 0.8 % (0-2.0); EOS % 4.4 % (0-4.5); LYMPH % 26.6 % (8-40); MCH 31.2 pg (25.7-33.7); MCHC 33.4 g/dl (32.0-35.9); MEAN CELL VOLUME 93.5 fl (80-96); MEAN PLT VOLUME 7.7 fl (7.5-11.1); MONO % 10.3 % (3.8-10.2); NEUT % 57.9 % (42.8-82.8); PLATELET COUNT 416 10^3/uL (134-434); RBC 2.89 M/mm3 (4.00-5.60); RDW 16.9 % (11.9-15.9); WHITE BLOOD COUNT 5.8 K/mm3 (4.0-10.0)
[2023-08-09 09:27] LABS: CALCIUM 8.6 mg/dL (8.5-10.1)
[2023-08-09 09:28] LABS: ALBUMIN 2.5 g/dl (3.4-5.0); BLOOD UREA NITROGEN 15.5 mg/dL (7-18)
[2023-08-09 09:31] LABS: CREATININE 0.8 mg/dL (0.55-1.3)
[2023-08-09 09:33] LABS: BILIRUBIN,TOTAL 0.2 mg/dL (0.2-1); TOT PROT 6.4 g/dl (6.4-8.2)
[2023-08-09] MEDS: MULTIVITAMINS (DAILY MVI) TABLET (FP) PO SCH (09:43)
[2023-08-09] MEDS: ASCORBIC ACID 500 MG TABLET (FP) PO SCH (09:43)
[2023-08-13 10:14] LABS: POTASSIUM 4.8 mmol/L (3.5-5.1)
[2023-08-13 10:16] LABS: ALBUMIN 2.6 g/dl (3.4-5.0); CALCIUM 9.1 mg/dL (8.5-10.1)
[2023-08-13 10:17] LABS: BLOOD UREA NITROGEN 12.1 mg/dL (7-18)
[2023-08-13 10:20] LABS: CREATININE 0.8 mg/dL (0.55-1.3)
[2023-08-13 10:21] LABS: BILIRUBIN,TOTAL 0.2 mg/dL (0.2-1); TOT PROT 6.9 g/dl (6.4-8.2)
[2023-08-13] MEDS: COLLAGENASE CLOSTRIDIUM HIST. 30 GRAMS TUBE TP SCH (15:12)
[2023-08-13] MEDS: AMOX TR/POT CLAV 875MG/125MG TABLETS (FP) PO SCH (17:33)
[2023-08-14 15:28] VITALS: RESP 18
[2023-08-15 15:11] VITALS: PULSE 82; TEMP 98.6
[2023-08-15 23:25] VITALS: BP 123/55
== END 2023-08-16 13:52 | disposition home health service (06) | DRG 383 ==
LOC: JER 02:05 → JERBED 04:59 → OBSVTOIN 12:33 → JERBED 14:31 → J8W 16:56
PROVIDERS: ADMIT Internal Medicine; ATTEND Internal Medicine
DX: L03.116 Cellulitis of left lower limb (principal); N17.9 Acute kidney failure, unspecified; N40.0 Benign prostatic hyperplasia without lower urinary tract symptoms; F32.A Depression, unspecified; J45.909 Unspecified asthma, uncomplicated; D64.9 Anemia, unspecified; F17.200 Nicotine dependence, unspecified, uncomplicated; L89.622 Pressure ulcer of left heel, stage 2; L89.212 Pressure ulcer of right hip, stage 2; M17.0 Bilateral primary osteoarthritis of knee; I87.2 Venous insufficiency (chronic) (peripheral); T83.028A Displacement of other urinary catheter, initial encounter; F19.10 Other psychoactive substance abuse, uncomplicated; F11.10 Opioid abuse, uncomplicated; R26.2 Difficulty in walking, not elsewhere classified; Y83.8 Other surgical procedures as the cause of abnormal reaction of the patient, or of later complication, without mention of misadventure at the time of the procedure; L89.892 Pressure ulcer of other site, stage 2
CPT/HCPCS: 36415; 73560-TC-LT-FY; 73560-TC-RT-FY; 76775-TC; 80053; 80307; 85025; 97116-GP; 99285-25; G0378

== ENCOUNTER 2023-08-31 18:16 | Inpatient (IN) | payer OTHER ==
[2023-08-31 18:28] VITALS: TEMP 98.9; BMI 24.4
[2023-08-31 22:28] VITALS: BP 123/75; PULSE 78; RESP 19
== END 2023-08-31 23:24 | disposition left against medical advice (07) | DRG 383 ==
LOC: JER 18:16 → JERBED 18:31
PROVIDERS: ADMIT Internal Medicine; ATTEND Internal Medicine
DX: L03.115 Cellulitis of right lower limb (principal); I87.2 Venous insufficiency (chronic) (peripheral); L97.828 Non-pressure chronic ulcer of other part of left lower leg with other specified severity; L97.818 Non-pressure chronic ulcer of other part of right lower leg with other specified severity; N40.0 Benign prostatic hyperplasia without lower urinary tract symptoms; F32.A Depression, unspecified; M25.561 Pain in right knee; M79.604 Pain in right leg; J45.909 Unspecified asthma, uncomplicated
CPT/HCPCS: 36415; 80048; 80053; 81003; 83605; 83735; 84100; 84484; 85025; 85027; 85610; 85651; 85730; 86140; 87086; 87186; 93970-TC; 97116-GP; 97161-GP; 99285-25; G0378; J0131; J1644

== ENCOUNTER 2023-09-20 17:09 | Inpatient (IN) | payer OTHER ==
[2023-09-20] MEDS ORDERED: PIPERACILLIN/TAZOB 3.375 GM 3.375 GM/50 ML BAG IVPB ONE (19:38)
[2023-09-20] MEDS ORDERED: VANCOMYCIN 1 GRAM (PRE-DOCKED) 1,000 MG/250 ML BAG IVPB ONE (19:38)
[2023-09-20] MEDS: SODIUM CHLORIDE 0.9% 500 ML INFUS.BAG IV ONE (20:06)
[2023-09-20] MEDS: PIPERACILLIN/TAZOB 3.375 GM 3.375 GM in DEXTROSE 5%-WATER - 50 ML IVPB ONE (20:06)
[2023-09-20 20:10] LABS: BASO % 0.5 % (0-2.0); EOS % 2.3 % (0-4.5); HEMATOCRIT 29.2 % (35.4-49); HEMOGLOBIN 9.8 GM/dL (11.7-16.9); LYMPH % 12.8 % (8-40); MCH 30.6 pg (25.7-33.7); MCHC 33.4 g/dl (32.0-35.9); MEAN CELL VOLUME 91.7 fl (80-96); MEAN PLT VOLUME 6.9 fl (7.5-11.1); MONO % 6.3 % (3.8-10.2); NEUT % 78.1 % (42.8-82.8); PLATELET COUNT 432 10^3/uL (134-434); RBC 3.18 M/mm3 (4.00-5.60); RDW 14.6 % (11.9-15.9); WHITE BLOOD COUNT 9.5 K/mm3 (4.0-10.0)
[2023-09-20] MEDS ORDERED: ACETAMINOPHEN INJECTION 100 ML IVPB ONE (20:13)
[2023-09-20 20:20] LABS: INR 1.25 (0.83-1.09)
[2023-09-20 20:22] LABS: ACTIVATED PTT 30.1 SECONDS (25.2-36.5)
[2023-09-20 20:29] LABS: ALBUMIN 2.3 g/dl (3.4-5.0); CALCIUM 8.9 mg/dL (8.5-10.1); MAGNESIUM 1.6 mg/dL (1.8-2.4)
[2023-09-20 20:31] LABS: BLOOD UREA NITROGEN 7.7 mg/dL (7-18)
[2023-09-20] MEDS: ACETAMINOPHEN 1000 MG/100 ML BAG IVPB ONE (20:32)
[2023-09-20 20:33] LABS: CREATININE 0.8 mg/dL (0.55-1.3)
[2023-09-20 20:35] LABS: BILIRUBIN,TOTAL 0.5 mg/dL (0.2-1); TOT PROT 6.7 g/dl (6.4-8.2)
[2023-09-20] MEDS: VANCOMYCIN 1,000 MG in DEXTROSE 5%-WATER - 250 ML IVPB ONE (21:14)
[2023-09-20] MEDS: MAGNESIUM 1GM/D5W - 1 GM/100 ML IVPB IVPB ONE (21:45)
[2023-09-20] MEDS ORDERED: MAGNESIUM 1GM/D5W - 1 GM/100 ML IVPB IVPB ONE (22:27)
[2023-09-20] MEDS: MAGNESIUM SULF 50% (8.12 MEQ/2 ML-1 GM VIAL) IVPB ONE (22:50)
[2023-09-21 06:48] LABS: BASO % 0.7 % (0-2.0); EOS % 4.4 % (0-4.5); HEMATOCRIT 31.1 % (35.4-49); HEMOGLOBIN 10.4 GM/dL (11.7-16.9); LYMPH % 17.8 % (8-40); MCH 31.1 pg (25.7-33.7); MCHC 33.6 g/dl (32.0-35.9); MEAN CELL VOLUME 92.6 fl (80-96); MEAN PLT VOLUME 6.7 fl (7.5-11.1); NEUT % 70.1 % (42.8-82.8); PLATELET COUNT 477 10^3/uL (134-434); RBC 3.36 M/mm3 (4.00-5.60); RDW 14.6 % (11.9-15.9)
[2023-09-21 07:03] LABS: POTASSIUM 4.1 mmol/L (3.5-5.1)
[2023-09-21 07:05] LABS: BLOOD UREA NITROGEN 6.7 mg/dL (7-18); CALCIUM 8.3 mg/dL (8.5-10.1)
[2023-09-21 07:09] LABS: CREATININE 0.6 mg/dL (0.55-1.3)
[2023-09-21] MEDS ORDERED: ALBUTEROL SO4 HFA INHALER IH PRN (09:17)
[2023-09-21] MEDS ORDERED: APIXABAN 2.5 MG TABLET ONE (09:22)
[2023-09-21] MEDS ORDERED: BUPRENORPHINE/NALOXONE 2 MG/0.5 MG FILM PACKET ONE (09:22)
[2023-09-21] MEDS ORDERED: ZINC SULFATE 220 MG CAPSULE (FP) ONE (09:22)
[2023-09-21] MEDS ORDERED: TAMSULOSIN HCL 0.4 MG CAP ONE (09:23)
[2023-09-21] MEDS ORDERED: ASCORBIC ACID 500 MG TABLET (FP) ONE (09:23)
[2023-09-21] MEDS ORDERED: VANCOMYCIN 1 GRAM (PRE-DOCKED) 1,000 MG/250 ML BAG IVPB ONE (09:23)
[2023-09-21] MEDS ORDERED: PIPERACILLIN/TAZOB 3.375 GM 3.375 GM/50 ML BAG IVPB ONE (09:24)
[2023-09-21] MEDS ORDERED: ACETAMINOPHEN INJECTION 100 ML IVPB ONE (10:06)
[2023-09-21] MEDS: FINASTERIDE 5 MG TABLET (FP) PO SCH (11:07)
[2023-09-21] MEDS: APIXABAN 2.5 MG TABLET PO SCH (11:07)
[2023-09-21] MEDS: BUPRENORPHINE/NALOXONE 2 MG/0.5 MG FILM PACKET SL SCH (11:07)
[2023-09-21] MEDS: VANCOMYCIN 1 GRAM (PRE-DOCKED) 1,000 MG/250 ML BAG IVPB SCH (11:08)
[2023-09-21] MEDS: TAMSULOSIN HCL 0.4 MG CAP PO SCH (11:08)
[2023-09-21] MEDS: ZINC SULFATE 220 MG CAPSULE (FP) PO SCH (11:08)
[2023-09-21] MEDS: PIPERACILLIN/TAZOB 3.375 GM 3.375 GM in DEXTROSE 5%-WATER - 50 ML IVPB SCH (11:08)
[2023-09-21] MEDS: ASCORBIC ACID 500 MG TABLET (FP) PO SCH (11:08)
[2023-09-21] MEDS: ACETAMINOPHEN 1000 MG/100 ML BAG IVPB PRN (11:08)
[2023-09-21] MEDS: MULTIVITAMINS (DAILY MVI) TABLET (FP) PO SCH (11:08)
[2023-09-21 12:56] LABS: EPI CELLS 0 /uL (0-25.1); HYALINE CASTS 2 /uL (0-3.1); URINE APPEARANCE CLEAR; URINE BACTERIA 1043 /uL (0-1359); URINE BILIRUBIN NEGATIVE (NEGATIVE); URINE COLOR YELLOW; URINE GLUCOSE (UA) NEGATIVE (NEGATIVE); URINE KETONE NEGATIVE (NEGATIVE); URINE LEUK ESTERASE 1+ (NEGATIVE); URINE NITRITE NEGATIVE (NEGATIVE); URINE PROTEIN 2+ (NEGATIVE); URINE RBC 49 /uL (0-23.9); URINE WBC 326 /uL (0-25.8)
[2023-09-21] MEDS: PIPERACILLIN/TAZOB 4.5 GM 4.5 GM in DEXTROSE 5%-WATER 100 ML IVPB SCH (17:34)
[2023-09-21 18:05] VITALS: BMI 29.9
[2023-09-21] MEDS: VANCOMYCIN/WATER 1250 MG 1,250 MG/250 ML BAG IVPB SCH (21:58)
[2023-09-21] MEDS: IBUPROFEN 400 MG TABLET (FP) PO ONE (22:07)
[2023-09-21] MEDS: MINERAL OIL/PET HY-PHL TOPICAL OINTMENT 454 GM JAR TP SCH (22:08)
[2023-09-23 09:31] LABS: BASO % 0.5 % (0-2.0); EOS % 1.6 % (0-4.5); HEMATOCRIT 27.3 % (35.4-49); HEMOGLOBIN 9.4 GM/dL (11.7-16.9); LYMPH % 13.1 % (8-40); MCH 31.3 pg (25.7-33.7); MCHC 34.4 g/dl (32.0-35.9); MEAN CELL VOLUME 91.1 fl (80-96); MEAN PLT VOLUME 6.9 fl (7.5-11.1); MONO % 5.5 % (3.8-10.2); NEUT % 79.3 % (42.8-82.8); PLATELET COUNT 461 10^3/uL (134-434); RBC 2.99 M/mm3 (4.00-5.60); RDW 14.9 % (11.9-15.9); WHITE BLOOD COUNT 8.8 K/mm3 (4.0-10.0)
[2023-09-23 09:46] LABS: POTASSIUM 4.4 mmol/L (3.5-5.1)
[2023-09-23 10:22] LABS: BLOOD UREA NITROGEN 8.4 mg/dL (7-18); CALCIUM 8.2 mg/dL (8.5-10.1); MAGNESIUM 1.8 mg/dL (1.8-2.4)
[2023-09-23 10:25] LABS: CREATININE 0.7 mg/dL (0.55-1.3); PHOSPHOROUS 2.4 mg/dL (2.5-4.9)
[2023-09-23] MEDS: COLLAGENASE CLOSTRIDIUM HIST. 30 GRAMS TUBE TP SCH ×2 (16:47)
[2023-09-23] MEDS: HALOPERIDOL LACTATE 5 MG/ML IM ONE ×2 (18:44→21:00)
[2023-09-24] MEDS: LORazepam 2 MG/ML SDV VIAL IM ONE (03:11)
[2023-09-25 09:18] LABS: HEMATOCRIT 27.7 % (35.4-49); HEMOGLOBIN 9.5 GM/dL (11.7-16.9); MCH 30.8 pg (25.7-33.7); MCHC 34.4 g/dl (32.0-35.9); MEAN CELL VOLUME 89.5 fl (80-96); MEAN PLT VOLUME 6.6 fl (7.5-11.1); PLATELET COUNT 490 10^3/uL (134-434); RDW 14.8 % (11.9-15.9); WHITE BLOOD COUNT 6.5 K/mm3 (4.0-10.0)
[2023-09-25 09:48] LABS: POTASSIUM 3.7 mmol/L (3.5-5.1)
[2023-09-25 09:52] LABS: CREATININE 0.7 mg/dL (0.55-1.3)
[2023-09-25 09:53] LABS: BLOOD UREA NITROGEN 3.9 mg/dL (7-18); MAGNESIUM 1.9 mg/dL (1.8-2.4)
[2023-09-25 09:54] LABS: CALCIUM 8.6 mg/dL (8.5-10.1)
[2023-09-25 09:56] LABS: PHOSPHOROUS 3.4 mg/dL (2.5-4.9)
[2023-09-26 13:02] LABS: HEMATOCRIT 29.8 % (35.4-49); MCH 30.2 pg (25.7-33.7); MCHC 33.4 g/dl (32.0-35.9); MEAN CELL VOLUME 90.2 fl (80-96); MEAN PLT VOLUME 6.9 fl (7.5-11.1); PLATELET COUNT 542 10^3/uL (134-434); RBC 3.31 M/mm3 (4.00-5.60); RDW 15.2 % (11.9-15.9); WHITE BLOOD COUNT 7.3 K/mm3 (4.0-10.0)
[2023-09-26 14:04] LABS: POTASSIUM 4.1 mmol/L (3.5-5.1)
[2023-09-26 14:06] LABS: BLOOD UREA NITROGEN 10.4 mg/dL (7-18); CALCIUM 8.6 mg/dL (8.5-10.1); MAGNESIUM 1.9 mg/dL (1.8-2.4)
[2023-09-26 14:09] LABS: PHOSPHOROUS 2.9 mg/dL (2.5-4.9)
[2023-09-26 14:10] LABS: CREATININE 0.8 mg/dL (0.55-1.3)
[2023-09-26 18:41] VITALS: RESP 18
[2023-09-27 08:48] LABS: HEMOGLOBIN 9.3 GM/dL (11.7-16.9); MCH 30.4 pg (25.7-33.7); MCHC 33.3 g/dl (32.0-35.9); MEAN CELL VOLUME 91.4 fl (80-96); MEAN PLT VOLUME 6.9 fl (7.5-11.1); PLATELET COUNT 515 10^3/uL (134-434); RBC 3.07 M/mm3 (4.00-5.60); RDW 15.3 % (11.9-15.9); WHITE BLOOD COUNT 6.9 K/mm3 (4.0-10.0)
[2023-09-27 09:22] LABS: POTASSIUM 4.7 mmol/L (3.5-5.1)
[2023-09-27 09:33] LABS: CALCIUM 8.7 mg/dL (8.5-10.1)
[2023-09-27 09:34] LABS: BLOOD UREA NITROGEN 18.2 mg/dL (7-18); MAGNESIUM 2.2 mg/dL (1.8-2.4)
[2023-09-27 09:37] LABS: CREATININE 0.9 mg/dL (0.55-1.3)
[2023-09-27 09:38] LABS: PHOSPHOROUS 3.2 mg/dL (2.5-4.9)
[2023-09-28 09:20] LABS: HEMATOCRIT 28.4 % (35.4-49); HEMOGLOBIN 9.6 GM/dL (11.7-16.9); MCH 30.7 pg (25.7-33.7); MCHC 33.7 g/dl (32.0-35.9); MEAN CELL VOLUME 91.1 fl (80-96); PLATELET COUNT 568 10^3/uL (134-434); RBC 3.11 M/mm3 (4.00-5.60); RDW 15.2 % (11.9-15.9); WHITE BLOOD COUNT 7.2 K/mm3 (4.0-10.0)
[2023-09-28 09:43] LABS: POTASSIUM 4.8 mmol/L (3.5-5.1)
[2023-09-28 09:56] LABS: CALCIUM 9.1 mg/dL (8.5-10.1)
[2023-09-28 09:57] LABS: MAGNESIUM 2.2 mg/dL (1.8-2.4)
[2023-09-28 09:59] LABS: CREATININE 0.8 mg/dL (0.55-1.3)
[2023-09-28 10:00] LABS: PHOSPHOROUS 3.4 mg/dL (2.5-4.9)
[2023-09-29 10:47] LABS: POTASSIUM 4.4 mmol/L (3.5-5.1)
[2023-09-29 10:52] LABS: BLOOD UREA NITROGEN 17.2 mg/dL (7-18)
[2023-09-29 10:55] LABS: CREATININE 0.7 mg/dL (0.55-1.3)
[2023-09-29 10:56] LABS: PHOSPHOROUS 2.6 mg/dL (2.5-4.9)
[2023-09-29 12:16] LABS: HEMATOCRIT 27.6 % (35.4-49); HEMOGLOBIN 9.4 GM/dL (11.7-16.9); MCH 31.7 pg (25.7-33.7); MEAN CELL VOLUME 93.1 fl (80-96); MEAN PLT VOLUME 7.2 fl (7.5-11.1); PLATELET COUNT 554 10^3/uL (134-434); RBC 2.96 M/mm3 (4.00-5.60); RDW 15.5 % (11.9-15.9); WHITE BLOOD COUNT 8.1 K/mm3 (4.0-10.0)
[2023-09-29] MEDS: AMOX TR/POT CLAV 875MG/125MG TABLETS (FP) PO ONE (15:07)
[2023-09-29] MEDS: AMOX TR/POT CLAV 875MG/125MG TABLETS (FP) PO SCH (22:46)
[2023-09-30 16:11] VITALS: BP 111/65; PULSE 91; TEMP 98.8
== END 2023-09-30 16:48 | disposition home or self-care (01) | DRG 380 ==
LOC: JER 17:09 → JERBED 18:56 → J5S 09-21 14:49
PROVIDERS: ADMIT Internal Medicine; ATTEND Internal Medicine
DX: L89.153 Pressure ulcer of sacral region, stage 3 (principal); L89.212 Pressure ulcer of right hip, stage 2; L89.322 Pressure ulcer of left buttock, stage 2; L89.622 Pressure ulcer of left heel, stage 2; L89.612 Pressure ulcer of right heel, stage 2; L03.312 Cellulitis of back [any part except buttock and flank]; F17.200 Nicotine dependence, unspecified, uncomplicated; I87.2 Venous insufficiency (chronic) (peripheral); F11.10 Opioid abuse, uncomplicated; N40.0 Benign prostatic hyperplasia without lower urinary tract symptoms; F19.10 Other psychoactive substance abuse, uncomplicated; J45.909 Unspecified asthma, uncomplicated; F32.A Depression, unspecified; D64.9 Anemia, unspecified
CPT/HCPCS: 0241U-QW; 36415; 72170-TC-FY; 72195-TC; 80048; 80053; 81003; 83605; 83735; 84100; 85025; 85027; 85610; 85651; 85730; 86140; 87040; 87070; 87076; 87086; 87186; 87205; 93005; 93010; 97116-GP; 97162-GP; 99285-25; E0186; J0131

== ENCOUNTER 2023-10-24 07:27 | Emergency (ER) | payer OTHER ==
[2023-10-24 07:36] VITALS: RESP 16; TEMP 97.6; BMI 29.5
[2023-10-24] MEDS ORDERED: ACETAMINOPHEN 500 MG TABLET (FP) ONE (08:55)
[2023-10-24] MEDS: ACETAMINOPHEN 500 MG TABLET (FP) PO ONE (08:59)
[2023-10-24] MEDS ORDERED: IBUPROFEN 400 MG TABLET (FP) PO ONE (09:31)
[2023-10-24] MEDS: IBUPROFEN 400 MG TABLET (FP) PO ONE (09:34)
[2023-10-24 10:46] VITALS: BP 146/66; PULSE 74
== END 2023-10-24 10:53 | disposition home or self-care (01) ==
LOC: JER 07:27
DX: M25.561 Pain in right knee (principal); M25.562 Pain in left knee; G89.29 Other chronic pain
CPT/HCPCS: 99283-25

== ENCOUNTER 2023-10-27 20:59 | Emergency (ER) | payer OTHER ==
[2023-10-27 21:21] VITALS: RESP 16; BMI 29.5
[2023-10-27] MEDS: KETOROLAC TROMETHAMINE 30 MG/1 ML VIAL IM ONE (22:13)
[2023-10-27] MEDS ORDERED: KETOROLAC TROMETHAMINE 30 MG/1 ML VIAL ONE (22:15)
[2023-10-28 01:26] VITALS: BP 154/84; PULSE 87; TEMP 97.4
== END 2023-10-28 06:38 | disposition home or self-care (01) ==
LOC: JER 20:59
PROC: 3E0133Z Introduction of Anti-inflammatory into Subcutaneous Tissue, Percutaneous Approach (ICD-10-PCS; principal; 2023-10-27)
DX: M25.561 Pain in right knee (principal); M25.562 Pain in left knee; G89.29 Other chronic pain
CPT/HCPCS: 99284-25

== ENCOUNTER 2023-10-31 00:28 | Emergency (ER) | payer OTHER ==
[2023-10-31 00:33] VITALS: BP 121/67; PULSE 97; RESP 16; TEMP 97.5; BMI 29.5
== END 2023-10-31 03:26 | disposition home or self-care (01) ==
LOC: JER 00:28
DX: M25.561 Pain in right knee (principal); M25.562 Pain in left knee; G89.29 Other chronic pain; Z76.5 Malingerer [conscious simulation]
CPT/HCPCS: 99283-25

== ENCOUNTER 2023-12-16 16:25 | Emergency (ER) | payer OTHER ==
[2023-12-16 17:02] VITALS: BMI 30.2
[2023-12-16 18:16] VITALS: TEMP 98.1
[2023-12-16] MEDS ORDERED: ACETAMINOPHEN 325 MG TABLET (FP) ONE (18:46)
[2023-12-16] MEDS ORDERED: KETOROLAC TROMETHAMINE 15 MG/ML VIAL ONE (18:46)
[2023-12-16] MEDS ORDERED: LIDOCAINE 4% PATCH TP ONE (18:46)
[2023-12-16] MEDS: LIDOCAINE 4% PATCH TP ONE (19:18)
[2023-12-16] MEDS: KETOROLAC TROMETHAMINE 15 MG/ML VIAL IM ONE (19:19)
[2023-12-16] MEDS: ACETAMINOPHEN 500 MG TABLET (FP) PO ONE ×2 (19:21)
[2023-12-16 20:47] VITALS: BP 121/58; PULSE 100; RESP 16
[2023-12-16] MEDS ORDERED: LIDOCAINE PATCH REMOVAL MC SCH (22:00)
== END 2023-12-17 02:30 | disposition home or self-care (01) ==
LOC: JER 16:25
PROC: 3E0133Z Introduction of Anti-inflammatory into Subcutaneous Tissue, Percutaneous Approach (ICD-10-PCS; principal; 2023-12-16)
DX: M17.0 Bilateral primary osteoarthritis of knee (principal); M25.561 Pain in right knee; M25.562 Pain in left knee; G89.29 Other chronic pain
CPT/HCPCS: 96372; 99284-25

== ENCOUNTER 2023-12-22 20:48 | Emergency (ER) | payer OTHER ==
[2023-12-22 21:05] VITALS: RESP 20; BMI 30.2
[2023-12-22] MEDS ORDERED: ACETAMINOPHEN INJECTION 100 ML ONE (22:16)
[2023-12-22 22:44] LABS: BASO % 0.3 % (0-2.0); EOS % 1.7 % (0-4.5); HEMATOCRIT 36.5 % (35.4-49); LYMPH % 18.9 % (8-40); MCH 30.9 pg (25.7-33.7); MCHC 32.8 g/dl (32.0-35.9); MEAN CELL VOLUME 94.4 fl (80-96); MEAN PLT VOLUME 7.9 fl (7.5-11.1); MONO % 5.9 % (3.8-10.2); NEUT % 73.2 % (42.8-82.8); PLATELET COUNT 331 10^3/uL (134-434); RBC 3.86 M/mm3 (4.00-5.60); RDW 16.3 % (11.9-15.9); WHITE BLOOD COUNT 8.9 K/mm3 (4.0-10.0)
[2023-12-22 22:57] LABS: POTASSIUM 4.4 mmol/L (3.5-5.1)
[2023-12-22 23:00] LABS: ALBUMIN 3.2 g/dl (3.4-5.0); BLOOD UREA NITROGEN 16.6 mg/dL (7-18)
[2023-12-22 23:03] LABS: CREATININE 0.8 mg/dL (0.55-1.3)
[2023-12-22 23:04] LABS: BILIRUBIN,TOTAL 0.3 mg/dL (0.2-1)
[2023-12-22 23:05] LABS: TOT PROT 7.2 g/dl (6.4-8.2)
[2023-12-22] MEDS: ACETAMINOPHEN 1000 MG/100 ML BAG IVPB ONE (23:19)
[2023-12-23 01:30] VITALS: BP 102/60; PULSE 66; TEMP 98.4
== END 2023-12-23 04:19 | disposition home or self-care (01) ==
LOC: JER 20:48
PROC: 3E033NZ Introduction of Analgesics, Hypnotics, Sedatives into Peripheral Vein, Percutaneous Approach (ICD-10-PCS; principal; 2023-12-22)
DX: J45.909 Unspecified asthma, uncomplicated (principal); R19.7 Diarrhea, unspecified; R05.9 Cough, unspecified; R06.02 Shortness of breath; R10.31 Right lower quadrant pain; Z20.822 Contact with and (suspected) exposure to COVID-19
CPT/HCPCS: 0241U-QW; 36415; 71046-TC-FY; 74177-TC; 80053; 83605; 83690; 85025; 93005; 93010; 99285-25; J0131

== ENCOUNTER 2023-12-26 14:13 | Observation (INO) | payer OTHER ==
[2023-12-26] MEDS ORDERED: ACETAMINOPHEN 325 MG TABLET (FP) ONE (15:27)
[2023-12-26] MEDS ORDERED: KETOROLAC TROMETHAMINE 30 MG/1 ML VIAL ONE (15:28)
[2023-12-26] MEDS ORDERED: LIDOCAINE 4% PATCH TP ONE ×2 (15:28→15:43)
[2023-12-26] MEDS: LIDOCAINE 5% TOPICAL PATCH TP ONE (15:31)
[2023-12-26] MEDS: KETOROLAC TROMETHAMINE 30 MG/1 ML VIAL IM ONE (15:37)
[2023-12-26] MEDS: IBUPROFEN 400 MG TABLET (FP) PO ONE (15:42)
[2023-12-26] MEDS ORDERED: LIDOCAINE PATCH REMOVAL MC SCH ×3 (15:43→22:00)
[2023-12-26] MEDS: ACETAMINOPHEN 500 MG TABLET (FP) PO ONE (15:47)
[2023-12-26 18:42] LABS: BASO % 0.4 % (0-2.0); EOS % 1.9 % (0-4.5); HEMATOCRIT 33.5 % (35.4-49); LYMPH % 22.3 % (8-40); MCH 30.7 pg (25.7-33.7); MCHC 32.8 g/dl (32.0-35.9); MEAN CELL VOLUME 93.7 fl (80-96); MEAN PLT VOLUME 7.8 fl (7.5-11.1); MONO % 7.6 % (3.8-10.2); NEUT % 67.8 % (42.8-82.8); PLATELET COUNT 341 10^3/uL (134-434); RBC 3.57 M/mm3 (4.00-5.60); RDW 16.5 % (11.9-15.9); WHITE BLOOD COUNT 7.4 K/mm3 (4.0-10.0)
[2023-12-26 19:05] LABS: POTASSIUM 4.5 mmol/L (3.5-5.1)
[2023-12-26 19:07] LABS: CALCIUM 8.8 mg/dL (8.5-10.1)
[2023-12-26 19:12] LABS: BILIRUBIN,TOTAL 0.3 mg/dL (0.2-1); TOT PROT 6.8 g/dl (6.4-8.2)
[2023-12-26] MEDS ORDERED: ACETAMINOPHEN 325 MG TABLET (FP) PO PRN (19:27)
[2023-12-26] MEDS: LIDOCAINE PATCH REMOVAL MC SCH (22:06)
[2023-12-26] MEDS: ENOXAPARIN NA (PORCINE) 40 MG/0.4 ML DISP.SYRIN SQ SCH (22:09)
[2023-12-27] MEDS: KETOROLAC TROMETHAMINE 15 MG/ML VIAL IVPUSH PRN (00:19)
[2023-12-27] MEDS: LIDOCAINE PATCH REMOVAL MC ONE (03:30)
[2023-12-27 03:37] VITALS: BMI 28.3
[2023-12-27] MEDS: TAMSULOSIN HCL 0.4 MG CAP PO SCH (08:15)
[2023-12-27] MEDS ORDERED: LIDOCAINE 4% PATCH TP SCH ×3 (10:00→15:42)
[2023-12-27] MEDS: FINASTERIDE 5 MG TABLET (FP) PO SCH (13:11)
[2023-12-27 13:34] LABS: EPI CELLS 3 /uL (0-25.1); HYALINE CASTS 0 /uL (0-3.1); PH,URINE 7.5 (5.0-8.0); URINE APPEARANCE CLEAR; URINE BACTERIA 67 /uL (0-1359); URINE BILIRUBIN NEGATIVE (NEGATIVE); URINE COLOR YELLOW; URINE GLUCOSE (UA) NEGATIVE (NEGATIVE); URINE KETONE NEGATIVE (NEGATIVE); URINE LEUK ESTERASE TRACE (NEGATIVE); URINE NITRITE NEGATIVE (NEGATIVE); URINE PROTEIN NEGATIVE (NEGATIVE); URINE RBC 21 /uL (0-23.9); URINE UROBILINOGEN 0.2 mg/dL (0.2-1.0); URINE WBC 49 /uL (0-25.8)
[2023-12-27 14:55] VITALS: RESP 18
[2023-12-29 12:48] LABS: BASO % 0.6 % (0-2.0); EOS % 4.6 % (0-4.5); HEMATOCRIT 33.6 % (35.4-49); LYMPH % 28.8 % (8-40); MCH 31.3 pg (25.7-33.7); MCHC 32.9 g/dl (32.0-35.9); MEAN CELL VOLUME 95.3 fl (80-96); MEAN PLT VOLUME 7.6 fl (7.5-11.1); MONO % 6.5 % (3.8-10.2); NEUT % 59.5 % (42.8-82.8); PLATELET COUNT 346 10^3/uL (134-434); RBC 3.53 M/mm3 (4.00-5.60); RDW 15.7 % (11.9-15.9); WHITE BLOOD COUNT 4.7 K/mm3 (4.0-10.0)
[2023-12-29 13:15] LABS: POTASSIUM 4.2 mmol/L (3.5-5.1)
[2023-12-29 13:16] LABS: CALCIUM 9.1 mg/dL (8.5-10.1)
[2023-12-29 13:18] LABS: ALBUMIN 2.8 g/dl (3.4-5.0); BLOOD UREA NITROGEN 8.9 mg/dL (7-18)
[2023-12-29 13:20] LABS: CREATININE 0.7 mg/dL (0.55-1.3)
[2023-12-29 13:21] LABS: BILIRUBIN,TOTAL 0.4 mg/dL (0.2-1)
[2023-12-29 13:22] LABS: TOT PROT 6.5 g/dl (6.4-8.2)
[2023-12-29 14:30] VITALS: BP 133/64; PULSE 72; TEMP 97.8
== END 2023-12-29 16:52 | disposition home or self-care (01) ==
LOC: JER 14:13 → JERBED 18:10 → UNDOADMOB 18:10 → INTOOBSV 18:10 → J8W 20:29 → JERBED 20:29 → J8W 20:33 → JERBED 12-29 14:35 → J8W 12-29 14:35 → INTOOBSV 12-29 14:36 → OBSVTOIN 12-29 14:36
PROVIDERS: ADMIT Internal Medicine; ATTEND Family Medicine
PROC: 3E023GC Introduction of Other Therapeutic Substance into Muscle, Percutaneous Approach (ICD-10-PCS; principal; 2023-12-29)
PROC: 3E0233Z Introduction of Anti-inflammatory into Muscle, Percutaneous Approach (ICD-10-PCS; 2023-12-29)
PROC: 3E0333Z Introduction of Anti-inflammatory into Peripheral Vein, Percutaneous Approach (ICD-10-PCS; 2023-12-29)
DX: M19.90 Unspecified osteoarthritis, unspecified site (principal); M79.2 Neuralgia and neuritis, unspecified; R26.2 Difficulty in walking, not elsewhere classified; M25.562 Pain in left knee; M25.561 Pain in right knee; I87.2 Venous insufficiency (chronic) (peripheral); F10.99 Alcohol use, unspecified with unspecified alcohol-induced disorder; F11.90 Opioid use, unspecified, uncomplicated; F32.A Depression, unspecified; Z87.891 Personal history of nicotine dependence; N40.0 Benign prostatic hyperplasia without lower urinary tract symptoms; N13.9 Obstructive and reflux uropathy, unspecified
CPT/HCPCS: 0241U-QW; 36415; 73560-TC-LT-FY; 73560-TC-RT-FY; 80053; 81003; 85025; 87086; 96372; 96374; 97161-GP; 99285-25; G0378

== ENCOUNTER 2024-01-04 02:23 | Observation (INO) | payer OTHER ==
[2024-01-04 03:26] LABS: BASO % 0.6 % (0-2.0); HEMATOCRIT 34.3 % (35.4-49); HEMOGLOBIN 11.6 GM/dL (11.7-16.9); LYMPH % 14.7 % (8-40); MCH 31.9 pg (25.7-33.7); MCHC 33.8 g/dl (32.0-35.9); MEAN CELL VOLUME 94.3 fl (80-96); MEAN PLT VOLUME 7.6 fl (7.5-11.1); MONO % 7.3 % (3.8-10.2); NEUT % 76.4 % (42.8-82.8); PLATELET COUNT 376 10^3/uL (134-434); RBC 3.63 M/mm3 (4.00-5.60); RDW 15.5 % (11.9-15.9); WHITE BLOOD COUNT 7.5 K/mm3 (4.0-10.0)
[2024-01-04] MEDS ORDERED: ACETAMINOPHEN 325 MG TABLET (FP) ONE (04:05)
[2024-01-04] MEDS: ACETAMINOPHEN 500 MG TABLET (FP) PO ONE (04:10)
[2024-01-04 04:18] LABS: INR 1.15 (0.83-1.09); PROTHROMBIN TIME (PATIENT) 12.9 SEC (9.7-13.0)
[2024-01-04 04:20] LABS: ACTIVATED PTT 34.1 SECONDS (25.2-36.5)
[2024-01-04 04:32] LABS: POTASSIUM 4.2 mmol/L (3.5-5.1)
[2024-01-04 04:34] LABS: CALCIUM 9.2 mg/dL (8.5-10.1)
[2024-01-04 04:35] LABS: BLOOD UREA NITROGEN 14.9 mg/dL (7-18)
[2024-01-04 04:38] LABS: CREATININE 1.1 mg/dL (0.55-1.3)
[2024-01-04 04:40] LABS: BILIRUBIN,TOTAL 0.4 mg/dL (0.2-1); TOT PROT 7.7 g/dl (6.4-8.2)
[2024-01-04 04:49] LABS: ALBUMIN 3.6 g/dl (3.4-5.0)
[2024-01-04] MEDS ORDERED: SIMETHICONE 80 MG TAB.CHEW (FP) ONE (05:18)
[2024-01-04] MEDS: SIMETHICONE 80 MG TAB.CHEW (FP) PO ONE (05:27)
[2024-01-04] MEDS ORDERED: MORPHINE SULFATE 2 MG/ML SYRINGE ONE (06:25)
[2024-01-04] MEDS: morphine CARPU-JECT 2 MG/1 ML DISP.SYRIN IVPUSH ONE (07:02)
[2024-01-04] MEDS ORDERED: KETOROLAC TROMETHAMINE 30 MG/1 ML VIAL ONE (09:26)
[2024-01-04] MEDS: KETOROLAC TROMETHAMINE 15 MG/ML VIAL IVPUSH ONE (09:29)
[2024-01-04] MEDS: KETOROLAC TROMETHAMINE 30 MG/1 ML VIAL IM ONE (09:30)
[2024-01-04] MEDS ORDERED: KETOROLAC TROMETHAMINE 15 MG/ML VIAL IVPUSH PRN (14:52)
[2024-01-04] MEDS ORDERED: ALBUTEROL SO4 HFA INHALER IH PRN (14:54)
[2024-01-04 17:56] VITALS: BMI 30.2
[2024-01-04] MEDS ORDERED: APIXABAN 2.5 MG TABLET PO SCH (22:00)
[2024-01-05] MEDS ORDERED: MAG HYDROX/AL HYDROX/SIMETH 30 ML UNIT-DOSE CUP PO PRN (07:30)
[2024-01-05] MEDS: TAMSULOSIN HCL 0.4 MG CAP PO SCH (11:15)
[2024-01-05] MEDS: FINASTERIDE 5 MG TABLET (FP) PO SCH (11:15)
[2024-01-05] MEDS: MULTIVITAMINS (DAILY MVI) TABLET (FP) PO SCH (11:15)
[2024-01-05] MEDS: PANTOPRAZOLE 40 MG TABLET PO SCH (11:15)
[2024-01-05] MEDS: ASCORBIC ACID 500 MG TABLET (FP) PO SCH (11:15)
[2024-01-05] MEDS: traMADol HCL 50 MG TABLET PO PRN (13:08)
[2024-01-05] MEDS: BUPRENORPHINE/NALOXONE 2 MG/0.5 MG FILM PACKET SL SCH (13:10)
[2024-01-07 18:44] LABS: URINE AMPHETAMINES NEGATIVE (NEGATIVE); URINE BARBITURATES NEGATIVE (NEGATIVE)
[2024-01-07 18:45] LABS: COCAINE, UR NEGATIVE (NEGATIVE); METHADONE, UR NEGATIVE (NEGATIVE); OPIATES, URI NEGATIVE (NEGATIVE); PHENCYCLIDINE,URINE NEGATIVE (NEGATIVE)
[2024-01-07 18:47] LABS: URINE BENZODIAZEPINES NEGATIVE (NEGATIVE)
[2024-01-11 21:36] VITALS: RESP 18
[2024-01-12 13:36] VITALS: BP 162/88; PULSE 110; TEMP 98.8
== END 2024-01-12 13:33 | disposition home or self-care (01) ==
LOC: JER 02:23 → JERBED 10:46 → J5S 17:19
PROVIDERS: ADMIT Internal Medicine; ATTEND Family Medicine
PROC: 3E0233Z Introduction of Anti-inflammatory into Muscle, Percutaneous Approach (ICD-10-PCS; principal; 2024-01-04)
PROC: 3E033NZ Introduction of Analgesics, Hypnotics, Sedatives into Peripheral Vein, Percutaneous Approach (ICD-10-PCS; 2024-01-04)
DX: R07.9 Chest pain, unspecified (principal); D64.9 Anemia, unspecified; K43.9 Ventral hernia without obstruction or gangrene; R26.2 Difficulty in walking, not elsewhere classified; N40.0 Benign prostatic hyperplasia without lower urinary tract symptoms; J45.909 Unspecified asthma, uncomplicated; L98.419 Non-pressure chronic ulcer of buttock with unspecified severity; F32.A Depression, unspecified; R14.0 Abdominal distension (gaseous); I87.2 Venous insufficiency (chronic) (peripheral); R60.0 Localized edema; M25.561 Pain in right knee; F10.920 Alcohol use, unspecified with intoxication, uncomplicated
CPT/HCPCS: 0241U-QW; 36415; 71045-TC-FY; 72100-TC-FY; 74019-TC-FY; 74176-TC; 80053; 80307; 84484; 85025; 85610; 85730; 93005; 93010; 93970-TC; 96372; 96374; 97116-GP; 97161-GP; 99285-25; G0378

== ENCOUNTER 2024-01-12 19:39 | Observation (INO) | payer OTHER ==
[2024-01-12] MEDS ORDERED: KETOROLAC TROMETHAMINE 15 MG/ML VIAL ONE (20:52)
[2024-01-12] MEDS: KETOROLAC TROMETHAMINE 15 MG/ML VIAL IVPUSH ONE (21:14)
[2024-01-12 21:23] LABS: BASO % 0.3 % (0-2.0); EOS % 0.2 % (0-4.5); HEMATOCRIT 35.1 % (35.4-49); HEMOGLOBIN 11.9 GM/dL (11.7-16.9); LYMPH % 9.9 % (8-40); MCH 31.6 pg (25.7-33.7); MCHC 33.9 g/dl (32.0-35.9); MEAN CELL VOLUME 93.4 fl (80-96); MEAN PLT VOLUME 7.4 fl (7.5-11.1); MONO % 4.9 % (3.8-10.2); NEUT % 84.7 % (42.8-82.8); PLATELET COUNT 458 10^3/uL (134-434); RBC 3.76 M/mm3 (4.00-5.60); RDW 15.8 % (11.9-15.9); WHITE BLOOD COUNT 9.6 K/mm3 (4.0-10.0)
[2024-01-12 22:04] LABS: ALBUMIN 3.3 g/dl (3.4-5.0); BLOOD UREA NITROGEN 25.8 mg/dL (7-18); CALCIUM 9.1 mg/dL (8.5-10.1)
[2024-01-12 22:09] LABS: BILIRUBIN,TOTAL 0.2 mg/dL (0.2-1); TOT PROT 7.5 g/dl (6.4-8.2)
[2024-01-12 23:53] VITALS: RESP 18; BMI 30.4
[2024-01-13] MEDS ORDERED: ACETAMINOPHEN 325 MG TABLET (FP) PO PRN (06:55)
[2024-01-13] MEDS: BUPRENORPHINE/NALOXONE 2 MG/0.5 MG FILM PACKET SL SCH (10:59)
[2024-01-13] MEDS: PANTOPRAZOLE 40 MG TABLET PO SCH (10:59)
[2024-01-13] MEDS: ASCORBIC ACID 500 MG TABLET (FP) PO SCH (10:59)
[2024-01-13] MEDS: TAMSULOSIN HCL 0.4 MG CAP PO SCH (10:59)
[2024-01-13] MEDS: MULTIVITAMINS (DAILY MVI) TABLET (FP) PO SCH (10:59)
[2024-01-13] MEDS: FINASTERIDE 5 MG TABLET (FP) PO SCH (11:00)
[2024-01-13] MEDS: traMADol HCL 50 MG TABLET PO PRN (16:04)
[2024-01-14 10:10] LABS: BASO % 0.8 % (0-2.0); EOS % 4.2 % (0-4.5); HEMATOCRIT 31.1 % (35.4-49); HEMOGLOBIN 10.2 GM/dL (11.7-16.9); LYMPH % 24.7 % (8-40); MCH 31.3 pg (25.7-33.7); MCHC 32.9 g/dl (32.0-35.9); MEAN CELL VOLUME 95.1 fl (80-96); MEAN PLT VOLUME 7.5 fl (7.5-11.1); MONO % 7.5 % (3.8-10.2); NEUT % 62.8 % (42.8-82.8); PLATELET COUNT 353 10^3/uL (134-434); RBC 3.27 M/mm3 (4.00-5.60); RDW 15.6 % (11.9-15.9); WHITE BLOOD COUNT 5.3 K/mm3 (4.0-10.0)
[2024-01-14 10:48] LABS: POTASSIUM 4.2 mmol/L (3.5-5.1)
[2024-01-14 10:56] LABS: BLOOD UREA NITROGEN 22.4 mg/dL (7-18); CALCIUM 8.7 mg/dL (8.5-10.1)
[2024-01-14 10:57] LABS: BILIRUBIN,TOTAL 0.2 mg/dL (0.2-1); TOT PROT 6.1 g/dl (6.4-8.2)
[2024-01-14 10:58] LABS: URIC ACID 5.3 mg/dL (2.6-7.2)
[2024-01-14 10:59] LABS: CREATININE 0.8 mg/dL (0.55-1.3)
[2024-01-14 11:13] LABS: ALBUMIN 2.6 g/dl (3.4-5.0)
[2024-01-16 10:40] VITALS: BP 109/65; PULSE 66; TEMP 98.2
== END 2024-01-16 12:34 | disposition home health service (06) ==
LOC: JERFT 19:39 → JERBED 21:34 → J6S 23:30
PROVIDERS: ADMIT Internal Medicine; ATTEND Family Medicine
PROC: 3E0333Z Introduction of Anti-inflammatory into Peripheral Vein, Percutaneous Approach (ICD-10-PCS; principal; 2024-01-12)
PROC: 3E0333Z Introduction of Anti-inflammatory into Peripheral Vein, Percutaneous Approach (ICD-10-PCS; 2024-01-12)
DX: N40.0 Benign prostatic hyperplasia without lower urinary tract symptoms (principal); F19.21 Other psychoactive substance dependence, in remission; L89.892 Pressure ulcer of other site, stage 2; R26.2 Difficulty in walking, not elsewhere classified; I10 Essential (primary) hypertension; Z72.0 Tobacco use
CPT/HCPCS: 36415; 73562-TC-LT-FY; 73562-TC-RT-FY; 80053; 82550; 84550; 85025; 86140; 86618; 96374; 97116-GP; 99285-25; G0378